=== PATIENT | female | born 1980 | race American Indian/Alaskan Native ===

== ENCOUNTER 2016-07-05 00:28 | Inpatient (IN) | payer MEDICAID, OTHER ==
[2016-07-05 01:16] LABS: Basophils % (Auto) 1.1 % (0.0-1.8); Eosinophils % (Auto) 2.5 % (0.0-4.3); Mean Corpuscular HGB Conc 28 % (30-34); Platelet Count 367 K/mm3 (140-440); Red Blood Count 3.94 M/mm3 (3.65-5.03); Red Cell Distribution Width 19.6 % (13.2-15.2); White Blood Count 5.9 K/mm3 (4.5-11.0)
[2016-07-05 01:31] LABS: Anion Gap 19 mmol/L; BUN/Creatinine Ratio 11.11; Blood Urea Nitrogen 10 mg/dL (7-17); Carbon Dioxide 21 mmol/L (22-30); Chloride 104.3 mmol/L (98-107); Glucose 94 mg/dL (65-100); Potassium 4.2 mmol/L (3.6-5.0); Sodium 140 mmol/L (137-145)
[2016-07-05 01:45] LABS: Hematocrit 23.6 % (30.3-42.9); Hemoglobin 6.6 gm/dl (10.1-14.3); Mean Corpuscular Hemoglobin 17 pg (28-32); Mean Corpuscular Volume 60 fl (79-97)
[2016-07-05 03:25] LABS: Urine Drugs of Abuse Note Disclamer
[2016-07-05 03:48] LABS: Bilirubin,Urine NEG (Negative); Blood,Urine NEG (Negative); Ketones,Urine NEG (Negative); Leukocyte Esterase,Urine SM (Negative); Mucus,Urine FEW /HPF; Nitrite,Urine NEG (Negative); Protein,Urine <15 mg/dL mg/dL (Negative)
[2016-07-05] MEDS ORDERED: NACL 0.9% 500 ML 500 ML IV ONE (04:18)
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
[2016-07-05] MEDS ORDERED: DULCOLAX PR PRN (05:40)
[2016-07-05] MEDS ORDERED: MILK OF MAGNESIA PO PRN (05:40)
[2016-07-05] MEDS ORDERED: ZOFRAN IV PRN (05:40)
--- NOTE | 2016-07-05 05:43 | History and Physical Report ---
History of Present Illness Date of examination: 07/05/16 History of present illness: 36-year-old woman with a history of schizophrenia, bipolar, iron deficiency anemia, hypertension comes emergency room with complaining of feeling fatigued, weak. She also admits to suicidal ideation. He has not taken her psych medications for one 4 months, no iron pills for 1 year. She has multiple stresses in her life, has been on drugs because she has been depressed, has not slept since 5 days and keep. Voices to kill herself. She complains of lower abdominal pain, dull, intermittent in nature, unable to [place] O, intensity, 10, no radiation and she can't identify exacerbating or relieving factors. She has had a menstrual cycle, sometimes twice in 1 month, 10 days each Patient denies chest pain, palpitation, shortness of breath, cough, hematochezia, dysuria, frequency, focal weakness, dysarthria, fever chills, polydipsia polyuria, hot or cold intolerance, easy bruisability, or rash or bleeding from mucosal membrane, rhinorrhea, epistaxis, earache, tinnitus, blurry vision, eye discharge, anxiety, depression. Other review of systems negative PAST SURGICAL HISTORY: Tubal ligation, hernia repair, neck surgery SOCIAL HISTORY: Smoke a pack a day, admits to alcohol, marijuana, cocaine FAMILY HISTORY: Unknown Medications and Allergies Allergies Allergy/AdvReac Type Severity Reaction Status Date / Time No Known Allergies Allergy Verified 07/14/14 15:14 Home Medications Medication Instructions Recorded Confirmed Last Taken Type ALPRAZolam [Xanax TAB] 1 tab PO HS 07/05/16 07/05/16 Unknown History Amitriptyline 50 mg PO BID 07/05/16 07/05/16 Unknown History Sertraline [Zoloft] 50 mg PO QDAY 07/05/16 07/05/16 Unknown History Exam - Physical Exam Narrative exam: Gen. appearance: Patient lying in bed, no apparent distress HEENT: Normocephalic, atraumatic, pupils equally round and reactive to light, extraocular movement intact, and no sclericterus,. No JVD or thyromegaly or nodule,neck supple, no carotid bruit ,mucous membranes moist, no exudate or erythema Heart: S1, S2, regular rate and rhythm Lungs: Clear to auscultation bilaterally, breathing comfortable Abdomen: Positive bowel sounds, nontender, nondistended, no organomegaly Extremity: No edema, cyanosis, clubbing Skin: No rash, nodules, warm, dry Neuro: Oriented 3, cranial nerves II-12 intact, speech is fluent, motor and sensory intact - Constitutional Vitals: Temp Pulse Resp BP Pulse Ox 99.8 F H 84 14 145/92 99 07/05/16 00:37 07/05/16 00:37 07/05/16 03:32 07/05/16 00:37 07/05/16 03:32 Results - Labs CBC & Chem 7: 07/06/16 05:14 07/06/16 05:14 Labs: Abnormal lab results 07/05/16 07/05/16 07/05/16 Range/Units 01:02 01:02 01:02 Hgb 6.6 L (10.1-14.3) gm/dl Hct 23.6 L (30.3-42.9) % MCV 60 L (79-97) fl MCH 17 L (28-32) pg MCHC 28 L (30-34) % RDW 19.6 H (13.2-15.2) % [place] % (Auto) 8.9 H (0.0-7.3) % Carbon Dioxide 21 L (22-30) mmol/L Iron 13 L (37-170) ug/dL Transferrin 397 H (192-382) mg/dl - Imaging and Cardiology EKG: image reviewed Assessment and Plan Suicidal ideation Abdominal pain Symptomatic anemia Bipolar Schizophrenia Hypertension Admit to medicine Place with a sitter, consult psych Transfuse blood, check CAT scan of the abdomen and pelvis Continue appropriate outpatient medication, start DVT prophylaxis
--- NOTE | 2016-07-05 07:14 | Admit Criteria Form ---
Admission Criteria Documentation: HEMATOLOGY GRG Clinical Indications for Admission to Inpatient Care (Place 'X' for any and all applicable criteria): Hospital admission is needed for appropriate care of the patient because of ANY ONE of the following: [X ]I. Severe anemia indicated by ANY ONE of the following (1)(2) [ ]a) Altered mental status [ ]b) Syncope [X ]c) Other findings suggesting inadequate perfusion [ ]d) Chest pain [ X]e) Exertional dyspnea [ ]f) Treatment with transfusion or volume replacement is ineffective at resolving ANY ONE of the following [A]: [ ]i) Tachycardia for age [ ]ii) Orthostatic vital sign changes as indicated by ANY ONE of the following (3) [ ]1) Fall in SBP of 20 mm Hg or more 1 to 3 minutes after patient sits or stands from recumbent position [ ]2) Fall in DBP of 10 mm Hg or more 1 to 3 minutes after patient sits or stands from recumbent position [ ]II. High-risk febrile neutropenia [B] as indicated by ANY ONE of the following(4)(5) [ ]a) Hemodynamic instability [ ]b) Hypoxemia [ ]c) Tachypnea [ ]d) Altered mental status [ ]e) New onset abdominal pain [ ]f) New onset vomiting or diarrhea [ ]g) Pneumonia [ ]h) Profound neutropenia [C] anticipated to extend for more than 7 days [ ]i) Oral or gastrointestinal mucositis that interferes with swallowing or causes severe diarrhea [ ]j) Evidence of significant focal infection (eg, cellulitis, central line or catheter infection, perirectal abscess) [ ]k) Leukemia or lymphoma induction therapy [ ]l) Bone marrow transplant patient [ ]m) Renal insufficiency (eg, GFR of less than 30 mL/min/1.73m2 (0.5 mL/sec/1.73m2) [ ]n) Severe liver dysfunction (transaminase levels greater than 5 times normal) [ ]o) Platelet count less than 50,000/mm3 (50 x109/L)(6) [ ]p) Multinational Association for Supportive Care in Cancer (MASCC) Risk Index score of < 21 [D] [ ]III. High-risk low platelet count as indicated by ANY ONE of the following(8) (9) [ ]a) Severe or life-threatening bleeding (eg, intracranial, major gastrointestinal, or extensive mucosal bleeding), with any reduced platelet count [ ]b) Platelet count less than 20,000/mm3 (20 x109/L) with any active bleeding [ ]c) Platelet count less than 10,000/mm3 (10 x109/L) with minor purpura or petechiae [ ]d) Platelet count less than 5000/mm3 (5 x109/L) [ ]e) Low platelet count with hemolytic anemia [ ]IV.Active hemolysis with high-risk findings, including ANY ONE of the following(2)(10)(11) [ ]a) Hematocrit less than 25% (0.25) [ ]b) Rapidly progressing anemia [ ]c) Thrombocytopenia(12)(13) [ ]d) Evidence of thrombosis or new renal insufficiency [ ]V. Bleeding disorder with high-risk features (eg, hemophilia, coagulopathy) as indicated by ANY ONE of the following (2)(14)(15) [ ]a) Central nervous system bleeding [ ]b) Retroperitoneal bleeding [ ]c) Retropharyngeal bleeding [ ]d) Gastrointestinal bleeding (22) [ ]e) Purpura [ ]f) Disseminated intravascular coagulation(23) [ ]g) Major trauma [ ]h) Deep laceration [ ]i) Head trauma [ ]j) Any trauma with internal hematoma (eg, retroperitoneal, ocular) [ ]k) Failed outpatient management [ ]. Severe over-anticoagulation or high-risk situation as indicated by ANY ONE of the following(24)(25) [ ]a) Active bleeding [ ]b) International normalized ratio 5 or greater and rapid reversal needed [ ]c) International normalized ratio 9 or greater [ ]VII. Congenital immunodeficiency states with severe morbidity as indicated by ANY ONE of the following(26)(27) [ ]a) Severe infection [ ]b) Bone marrow transplant needed (Also use Medical Oncology GRG) [ ]VIII. Hyperviscosity syndrome with high-risk indicators indicated by ANY ONE of the following (2)(28)(29)(30)(31) [ ]a) Polycythemia vera with hematocrit greater than 60% (0.60) [ ]b) Elevated platelet count associated with thrombosis, bleeding, or life-threatening organ dysfunction [ ]c) Severe signs or symptoms from elevated red cell, white cell, or protein levels, including ANY ONE of the following: [ ]i) Mental status change [ ]ii) Dyspnea [ ]iii) Chest x-ray infiltrate [ ]iv) Visual changes [ ]v) Retinal abnormalities [ ]vi) Neuromuscular symptoms [ ]vii) Suspected ischemia or thrombosis [ ]viii) Bleeding [ ]IX. Methemoglobinemia greater than 15% (0.15) or severe symptoms persist after emergency treatment (32)(33) [ ]X. Spleen trauma with blood loss or other need for acute (medical) treatment (34) [ ]XI. Hematology condition and ALL of the following: [ ]a) Symptom or finding for which emergency and observation care have failed or are not considered appropriate (Also use General Criteria: Observation Care as appropriate) [ ]b) Presence of ANY ONE of the following: [ ]i) A General Admission Criteria [ ]ii) A Pediatric General Admission Criteria The original [facility] [employer] content created by [facility] has been revised. The portions of the content which have been revised are identified through the use of italic text or in bold, and [facility] has neither reviewed nor approved the modified material. All other unmodified content is copyright [facility]. Please see references footnoted in the original [facility] edition 2016 Admission Criteria Met: Yes
--- NOTE | 2016-07-05 07:41 | Cat Scan Report ---
FINAL REPORT PROCEDURE: CT ABDOMEN PELVIS WO CON TECHNIQUE: Computerized axial tomography of the abdomen and pelvis was performed without intravenous contrast. This study is performed without intravascular contrast material and its sensitivity for abdominal and pelvic pathology, including neoplasms, inflammation, abscess, free fluid, thrombosis, arterial dissection and infarction, is reduced compared with a contrast enhanced study. HISTORY: abd pain COMPARISON: No prior studies are available for comparison. FINDINGS: Visualized lower thorax: No significant abnormality. Liver: Normal size and attenuation. Spleen: Normal size and attenuation. Gallbladder and biliary system: There are gallstones. The gallbladder is contracted.. Pancreas: Normal. Adrenals: Normal. Kidneys: There are no kidney stones. There is no hydronephrosis.. GI tract: There is no bowel obstruction, colitis or enteritis. The appendix is normal. Lymph nodes and mesentery: Normal. Vasculature: Normal. Bladder: Normal. Reproductive organs: Uterus is enlarged. The ovaries are unremarkable.. Peritoneum: There is no ascites, free air, abscess or adenopathy.. Musculoskeletal structures: No significant abnormality. Other: There are numerous phleboliths in the ovarian veins and in the pelvis.. IMPRESSION: There are gallstones. The gallbladder is contracted. The bile ducts are normal in caliber.. There are no kidney stones. There is no hydronephrosis.. There is no bowel obstruction, colitis or enteritis. The appendix is normal. Uterus is enlarged. The ovaries are unremarkable.. There is no ascites, free air, abscess or adenopathy.. .
[2016-07-05] MEDS ORDERED: NACL 0.9% 500 ML 500 ML ONE (08:51)
[2016-07-05] MEDS: ELAVIL PO SCH ×2 (11:00→22:04)
[2016-07-05] MEDS: ZOLOFT PO SCH (11:00)
[2016-07-05] MEDS ORDERED: BENADRYL ONE (12:55)
--- NOTE | 2016-07-05 13:12 | Event Note ---
Date: 07/05/16 Patient is alert and oriented Feels weak and tired Can't sleep Hearing voices and feels unsafe H and P reviewed Suicidal ideation: Awaiting mental health evaluation Symptomatic anemia: 2 units of PRBC has been ordered Bipolar Schizophrenia Medically appears to be fairly stable
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
[2016-07-05] MEDS: XANAX PO SCH (22:04)
[2016-07-05] MEDS: RisperDAL PO SCH (22:04)
[2016-07-06 06:08] LABS: Basophils % (Auto) 0.7 % (0.0-1.8); Eosinophils % (Auto) 4.1 % (0.0-4.3); Hematocrit 24.8 % (30.3-42.9); Hemoglobin 7.3 gm/dl (10.1-14.3); Mean Corpuscular HGB Conc 30 % (30-34); Platelet Count 262 K/mm3 (140-440); Red Blood Count 3.92 M/mm3 (3.65-5.03); White Blood Count 6.1 K/mm3 (4.5-11.0)
[2016-07-06 06:11] LABS: Mean Corpuscular Hemoglobin 19 pg (28-32); Mean Corpuscular Volume 63 fl (79-97); Red Cell Distribution Width 22.4 % (13.2-15.2)
[2016-07-06 06:30] LABS: Anion Gap 15 mmol/L; BUN/Creatinine Ratio 13.75; Blood Urea Nitrogen 11 mg/dL (7-17); Calcium 8.3 mg/dL (8.4-10.2); Carbon Dioxide 23 mmol/L (22-30); Chloride 105.8 mmol/L (98-107); Glucose 87 mg/dL (65-100); Potassium 4.2 mmol/L (3.6-5.0); Sodium 140 mmol/L (137-145)
--- NOTE | 2016-07-06 12:42 | Progress Note ---
Assessment and Plan Assessment and plan: Suicidal ideation. Continue 1013. Psychiatry following. Abdominal pain. CT scan essentially negative with the exception of gallstones. Cholelithiasis. Check HIDA scan. Symptomatic anemia. Follow-up iron studies. Check Hemoccult stool. Patient is status post 2 units packed red blood cells and hemoglobin still only 7.3. Bipolar/schizophrenia. Psychiatric evaluation. Hypertension. Continue antihypertensives medications. History Interval history: 36-year-old female who is is requesting help for SI, depression, and AH telling her to hurt herself. Patient also complains of fatigue and weakness. Hospitalist Physical - Constitutional Vitals: Temp Pulse Resp BP Pulse Ox 98.0 F 77 18 113/78 100 07/06/16 07:28 07/06/16 07:28 07/06/16 07:28 07/06/16 07:28 07/06/16 07:28 General appearance: Present: no acute distress, well-nourished - EENT Eyes: Present: PERRL, EOM intact ENT: hearing intact, clear oral mucosa, dentition normal - Neck Neck: Present: supple, normal ROM - Respiratory Respiratory effort: normal Respiratory: bilateral: CTA - Cardiovascular Rhythm: regular Heart Sounds: Present: S1 & S2. Absent: gallop, rub - Extremities Extremities: no ischemia, No edema, Full ROM - Abdominal General gastrointestinal: soft, non-tender, non-distended, normal bowel sounds - Integumentary Integumentary: Present: clear, warm, dry - Neurologic Neurologic: CNII-XII intact, moves all extremities Results - Labs CBC & Chem 7: 07/06/16 05:14 07/06/16 05:14 Labs: Laboratory Last Values WBC 6.1 K/mm3 (4.5-11.0) 07/06/16 05:14 RBC 3.92 M/mm3 (3.65-5.03) 07/06/16 05:14 Hgb 7.3 gm/dl (10.1-14.3) L 07/06/16 05:14 Hct 24.8 % (30.3-42.9) L 07/06/16 05:14 MCV 63 fl (79-97) L D 07/06/16 05:14 MCH 19 pg (28-32) L 07/06/16 05:14 MCHC 30 % (30-34) 07/06/16 05:14 RDW 22.4 % (13.2-15.2) H 07/06/16 05:14 Plt Count 262 K/mm3 (140-440) 07/06/16 05:14 Lymph % (Auto) 29.5 % (13.4-35.0) 07/06/16 05:14 [place] % (Auto) 8.9 % (0.0-7.3) H 07/06/16 05:14 Eos % (Auto) 4.1 % (0.0-4.3) 07/06/16 05:14 Baso % (Auto) 0.7 % (0.0-1.8) 07/06/16 05:14 Lymph # 1.8 K/mm3 (1.2-5.4) 07/06/16 05:14 [place] # 0.5 K/mm3 (0.0-0.8) 07/06/16 05:14 Eos # 0.2 K/mm3 (0.0-0.4) 07/06/16 05:14 Baso # 0.0 K/mm3 (0.0-0.1) 07/06/16 05:14 Seg Neutrophils % 56.8 % (40.0-70.0) 07/06/16 05:14 Seg Neutrophils # 3.5 K/mm3 (1.8-7.7) 07/06/16 05:14 Sodium 140 mmol/L (137-145) 07/06/16 05:14 Potassium 4.2 mmol/L (3.6-5.0) 07/06/16 05:14 Chloride 105.8 mmol/L (98-107) 07/06/16 05:14 Carbon Dioxide 23 mmol/L (22-30) 07/06/16 05:14 Anion Gap 15 mmol/L 07/06/16 05:14 BUN 11 mg/dL (7-17) 07/06/16 05:14 Creatinine 0.8 mg/dL (0.7-1.2) 07/06/16 05:14 Estimated GFR > 60 ml/min 07/06/16 05:14 BUN/Creatinine Ratio 13.75 % 07/06/16 05:14 Glucose 87 mg/dL (65-100) 07/06/16 05:14 Calcium 8.3 mg/dL (8.4-10.2) L 07/06/16 05:14 Iron 13 ug/dL (37-170) L 07/05/16 01:02 TIBC 449 mcg/dL (250-450) 07/05/16 01:02 % Saturation 2.90 % 07/05/16 01:02 Transferrin 397 mg/dl (192-382) H 07/05/16 01:02 Total Creatine Kinase 69 units/L (30-135) 07/05/16 04:20 Urine Color Yellow (Yellow) 07/05/16 03:07 Urine Turbidity Clear (Clear) 07/05/16 03:07 Urine pH 6.0 (5.0-7.0) 07/05/16 03:07 Ur Specific [place] 1.017 (1.003-1.030) 07/05/16 03:07 Urine Protein <15 mg/dl mg/dL (Negative) 07/05/16 03:07 Urine Glucose (UA) Neg mg/dL (Negative) 07/05/16 03:07 Urine Ketones Neg mg/dL (Negative) 07/05/16 03:07 Urine Blood Neg (Negative) 07/05/16 03:07 Urine Nitrite Neg (Negative) 07/05/16 03:07 Urine Bilirubin Neg (Negative) 07/05/16 03:07 Urine Urobilinogen 2.0 mg/dL (<2.0) 07/05/16 03:07 Ur Leukocyte Esterase Sm (Negative) 07/05/16 03:07 Urine WBC (Auto) 1.0 /HPF (0.0-6.0) 07/05/16 03:07 Urine RBC (Auto) 2.0 /HPF (0.0-6.0) 07/05/16 03:07 U Epithel Cells (Auto) 2.0 /HPF (0-13.0) 07/05/16 03:07 Urine Mucus Few /HPF 07/05/16 03:07 Urine HCG, Qual Negative (Negative) 07/05/16 03:07 Urine Opiates Screen Presumptive negative 07/05/16 03:07 Urine Methadone Screen Presumptive negative 07/05/16 03:07 Ur Barbiturates Screen Presumptive negative 07/05/16 03:07 Ur Phencyclidine Scrn Presumptive negative 07/05/16 03:07 Ur Amphetamines Screen Presumptive negative 07/05/16 03:07 U Benzodiazepines Scrn Presumptive negative 07/05/16 03:07 Urine Cocaine Screen Presumptive positive 07/05/16 03:07 U Marijuana (THC) Screen Presumptive negative 07/05/16 03:07 Drugs of Abuse Note Disclamer 07/05/16 03:07 Plasma/Serum Alcohol < 0.01 gm% (0-0.07) 07/05/16 01:02 Blood Type O POSITIVE 07/05/16 04:37 Antibody Screen TNR 07/05/16 04:37 VALENTÍN Antibody Screen Negative 07/05/16 04:37 Crossmatch See Detail 07/05/16 04:37
[2016-07-06 13:39] LABS: Reticulocyte % 1.89 % (0.78-2.58)
[2016-07-06] MEDS: ELAVIL PO SCH ×2 (13:57→22:07)
[2016-07-06] MEDS: ZOLOFT PO SCH (13:57)
[2016-07-06 14:20] LABS: Iron 22 ug/dL (37-170); Lactate Dehydrogenase 167 units/L (91-180); Total Iron Binding Capacity 410 mcg/dL (250-450)
[2016-07-06] MEDS: TYLENOL PO PRN (15:14)
[2016-07-06] MEDS: XANAX PO SCH (22:08)
[2016-07-06] MEDS: RisperDAL PO SCH (22:08)
[2016-07-07 08:15] LABS: Basophils % (Auto) 0.9 % (0.0-1.8); Eosinophils % (Auto) 4.9 % (0.0-4.3); Hematocrit 23.7 % (30.3-42.9); Mean Corpuscular HGB Conc 30 % (30-34); Platelet Count 211 K/mm3 (140-440); White Blood Count 6.3 K/mm3 (4.5-11.0)
[2016-07-07 08:23] LABS: Mean Corpuscular Hemoglobin 18 pg (28-32); Mean Corpuscular Volume 62 fl (79-97); Red Cell Distribution Width 23.1 % (13.2-15.2)
[2016-07-07] MEDS ORDERED: WATER FOR INJ (PF) 10 ML ONE (08:57)
[2016-07-07] MEDS ORDERED: KINEVAC IV ONE ×2 (08:58→09:09)
[2016-07-07 09:00] LABS: Anion Gap 14 mmol/L; BUN/Creatinine Ratio 12.85; Blood Urea Nitrogen 9 mg/dL (7-17); Calcium 8.6 mg/dL (8.4-10.2); Carbon Dioxide 26 mmol/L (22-30); Chloride 102.5 mmol/L (98-107); Glucose 91 mg/dL (65-100); Potassium 4.1 mmol/L (3.6-5.0); Sodium 138 mmol/L (137-145)
[2016-07-07] MEDS ORDERED: WATER FOR INJ (PF) IV SCH (10:00)
--- NOTE | 2016-07-07 10:07 | Progress Note ---
Assessment and Plan Assessment and plan: Suicidal ideation. Continue 1013. Psychiatry following. Abdominal pain. CT scan essentially negative with the exception of gallstones. Cholelithiasis. Check HIDA scan. Symptomatic anemia. Follow-up iron studies. Check Hemoccult stool. Patient is status post 2 units packed red blood cells and hemoglobin still only 7.0. We will transfuse 2 more units of Bipolar/schizophrenia. Psychiatric evaluation. Hypertension. Continue antihypertensives medications. History Interval history: 36-year-old female who is is requesting help for SI, depression, and AH telling her to hurt herself. Patient also complains of fatigue and weakness. Hospitalist Physical - Constitutional Vitals: Temp Pulse Resp BP Pulse Ox 98.0 F 72 20 143/95 100 07/07/16 07:43 07/07/16 07:43 07/07/16 07:43 07/07/16 07:43 07/07/16 00:00 General appearance: Present: no acute distress, well-nourished - EENT Eyes: Present: PERRL, EOM intact ENT: hearing intact, clear oral mucosa, dentition normal - Neck Neck: Present: supple, normal ROM - Respiratory Respiratory effort: normal Respiratory: bilateral: CTA - Cardiovascular Rhythm: regular Heart Sounds: Present: S1 & S2. Absent: gallop, rub - Extremities Extremities: no ischemia, No edema, Full ROM - Abdominal General gastrointestinal: soft, non-tender, non-distended, normal bowel sounds - Integumentary Integumentary: Present: clear, warm, dry - Neurologic Neurologic: CNII-XII intact, moves all extremities Results - Labs CBC & Chem 7: 07/07/16 07:49 07/07/16 07:49 Labs: Laboratory Last Values WBC 6.3 K/mm3 (4.5-11.0) 07/07/16 07:49 RBC 3.80 M/mm3 (3.65-5.03) 07/07/16 07:49 Hgb 7.0 gm/dl (10.1-14.3) L 07/07/16 07:49 Hct 23.7 % (30.3-42.9) L 07/07/16 07:49 MCV 62 fl (79-97) L 07/07/16 07:49 MCH 18 pg (28-32) L 07/07/16 07:49 MCHC 30 % (30-34) 07/07/16 07:49 RDW 23.1 % (13.2-15.2) H 07/07/16 07:49 Plt Count 211 K/mm3 (140-440) 07/07/16 07:49 Lymph % (Auto) 32.9 % (13.4-35.0) 07/07/16 07:49 [place] % (Auto) 8.6 % (0.0-7.3) H 07/07/16 07:49 Eos % (Auto) 4.9 % (0.0-4.3) H 07/07/16 07:49 Baso % (Auto) 0.9 % (0.0-1.8) 07/07/16 07:49 Lymph # 2.1 K/mm3 (1.2-5.4) 07/07/16 07:49 [place] # 0.5 K/mm3 (0.0-0.8) 07/07/16 07:49 Eos # 0.3 K/mm3 (0.0-0.4) 07/07/16 07:49 Baso # 0.1 K/mm3 (0.0-0.1) 07/07/16 07:49 Seg Neutrophils % 52.7 % (40.0-70.0) 07/07/16 07:49 Seg Neutrophils # 3.3 K/mm3 (1.8-7.7) 07/07/16 07:49 Percent Retic 1.89 % (0.78-2.58) 07/06/16 13:22 Sodium 138 mmol/L (137-145) 07/07/16 07:49 Potassium 4.1 mmol/L (3.6-5.0) 07/07/16 07:49 Chloride 102.5 mmol/L (98-107) 07/07/16 07:49 Carbon Dioxide 26 mmol/L (22-30) 07/07/16 07:49 Anion Gap 14 mmol/L 07/07/16 07:49 BUN 9 mg/dL (7-17) 07/07/16 07:49 Creatinine 0.7 mg/dL (0.7-1.2) 07/07/16 07:49 Estimated GFR > 60 ml/min 07/07/16 07:49 BUN/Creatinine Ratio 12.85 % 07/07/16 07:49 Glucose 91 mg/dL (65-100) 07/07/16 07:49 Calcium 8.6 mg/dL (8.4-10.2) 07/07/16 07:49 Iron 22 ug/dL (37-170) L 07/06/16 13:22 TIBC 410 mcg/dL (250-450) 07/06/16 13:22 % Saturation 2.90 % 07/05/16 01:02 Transferrin 397 mg/dl (192-382) H 07/05/16 01:02 Ferritin 3.9 ng/mL (13.0-400.0) L 07/06/16 13:22 Lactate Dehydrogenase 167 units/L (91-180) 07/06/16 13:22 Total Creatine Kinase 69 units/L (30-135) 07/05/16 04:20 Vitamin B12 228.8 pg/mL (211-911) 07/06/16 13:22 Folate 5.42 ng/mL (7.3-26.0) L 07/06/16 13:22 Urine Color Yellow (Yellow) 07/05/16 03:07 Urine Turbidity Clear (Clear) 07/05/16 03:07 Urine pH 6.0 (5.0-7.0) 07/05/16 03:07 Ur Specific [place] 1.017 (1.003-1.030) 07/05/16 03:07 Urine Protein <15 mg/dl mg/dL (Negative) 07/05/16 03:07 Urine Glucose (UA) Neg mg/dL (Negative) 07/05/16 03:07 Urine Ketones Neg mg/dL (Negative) 07/05/16 03:07 Urine Blood Neg (Negative) 07/05/16 03:07 Urine Nitrite Neg (Negative) 07/05/16 03:07 Urine Bilirubin Neg (Negative) 07/05/16 03:07 Urine Urobilinogen 2.0 mg/dL (<2.0) 07/05/16 03:07 Ur Leukocyte Esterase Sm (Negative) 07/05/16 03:07 Urine WBC (Auto) 1.0 /HPF (0.0-6.0) 07/05/16 03:07 Urine RBC (Auto) 2.0 /HPF (0.0-6.0) 07/05/16 03:07 U Epithel Cells (Auto) 2.0 /HPF (0-13.0) 07/05/16 03:07 Urine Mucus Few /HPF 07/05/16 03:07 Urine HCG, Qual Negative (Negative) 07/05/16 03:07 Urine Opiates Screen Presumptive negative 07/05/16 03:07 Urine Methadone Screen Presumptive negative 07/05/16 03:07 Ur Barbiturates Screen Presumptive negative 07/05/16 03:07 Ur Phencyclidine Scrn Presumptive negative 07/05/16 03:07 Ur Amphetamines Screen Presumptive negative 07/05/16 03:07 U Benzodiazepines Scrn Presumptive negative 07/05/16 03:07 Urine Cocaine Screen Presumptive positive 07/05/16 03:07 U Marijuana (THC) Screen Presumptive negative 07/05/16 03:07 Drugs of Abuse Note Disclamer 07/05/16 03:07 Plasma/Serum Alcohol < 0.01 gm% (0-0.07) 07/05/16 01:02 Blood Type O POSITIVE 07/05/16 04:37 Antibody Screen TNR 07/05/16 04:37 VALENTÍN Antibody Screen Negative 07/05/16 04:37 Crossmatch See Detail 07/05/16 04:37
[2016-07-07] MEDS ORDERED: NACL 0.9% 500 ML 500 ML IV ONE (10:30)
[2016-07-07] MEDS: TYLENOL PO PRN (10:48)
[2016-07-07] MEDS: ELAVIL PO SCH ×2 (10:49→21:43)
[2016-07-07] MEDS: ZOLOFT PO SCH (10:49)
--- NOTE | 2016-07-07 10:58 | Nuclear Medicine Report ---
NUCLEAR MEDICINE HEPATOBILIARY SCAN: 07/07/16 12:43:00 CLINICAL: Abdominal pain and cholelithiasis. TECHNIQUE: 5.0mCi technetium 99m Choletec was injected intravenously. Serial images were obtained up to one hour. At that time, 2.18 mcg of Kinevac was injected intravenously by slow infusion. A gallbladder ejection fraction was calculated. FINDINGS: Normal activity in the liver, bile ducts and small bowel. Normal gallbladder activity appears within ten minutes. New nausea was experienced with the Kinevac injection. Abnormal gallbladder ejection fraction of 14%. IMPRESSION: No acute cholecystitis. However, abnormal gallbladder ejection fraction consistent with gallbladder dyskinesis.
[2016-07-07] MEDS: PERCOCET 5/325 PO PRN (21:02)
[2016-07-07] MEDS: XANAX PO SCH (21:43)
[2016-07-07] MEDS: RisperDAL PO SCH (21:43)
[2016-07-08] MEDS: PERCOCET 5/325 PO PRN ×3 (03:12→18:18)
[2016-07-08] MEDS: ELAVIL PO SCH ×2 (09:24→21:39)
[2016-07-08] MEDS: ZOLOFT PO SCH (09:25)
--- NOTE | 2016-07-08 11:17 | Progress Note ---
Assessment and Plan Assessment and plan: Suicidal ideation. Continue 1013. Psychiatry following. Abdominal pain. CT scan essentially negative with the exception of gallstones. Cholelithiasis. HIDA scan suggestive of gallbladder dyskinesia. Symptomatic anemia. Follow-up iron studies. Check Hemoccult stool. Type and cross and transfuse 2 units PRBCs. Bipolar/schizophrenia. Psychiatric evaluation. Hypertension. Continue antihypertensives medications. History Interval history: 36-year-old female who is is requesting help for SI, depression, and AH telling her to hurt herself. Hospitalist Physical - Constitutional Vitals: Temp Pulse Resp BP Pulse Ox 98.1 F 84 18 138/82 97 07/08/16 08:00 07/08/16 08:00 07/08/16 08:00 07/08/16 08:00 07/08/16 08:00 General appearance: Present: no acute distress, well-nourished - EENT Eyes: Present: PERRL, EOM intact ENT: hearing intact, clear oral mucosa, dentition normal - Neck Neck: Present: supple, normal ROM - Respiratory Respiratory effort: normal Respiratory: bilateral: CTA - Cardiovascular Rhythm: regular Heart Sounds: Present: S1 & S2. Absent: gallop, rub - Extremities Extremities: no ischemia, No edema, Full ROM - Abdominal General gastrointestinal: soft, non-tender, non-distended, normal bowel sounds - Integumentary Integumentary: Present: clear, warm, dry - Neurologic Neurologic: CNII-XII intact, moves all extremities Results - Labs CBC & Chem 7: 07/07/16 07:49 07/07/16 07:49 Labs: Laboratory Last Values WBC 6.3 K/mm3 (4.5-11.0) 07/07/16 07:49 RBC 3.80 M/mm3 (3.65-5.03) 07/07/16 07:49 Hgb 7.0 gm/dl (10.1-14.3) L 07/07/16 07:49 Hct 23.7 % (30.3-42.9) L 07/07/16 07:49 MCV 62 fl (79-97) L 07/07/16 07:49 MCH 18 pg (28-32) L 07/07/16 07:49 MCHC 30 % (30-34) 07/07/16 07:49 RDW 23.1 % (13.2-15.2) H 07/07/16 07:49 Plt Count 211 K/mm3 (140-440) 07/07/16 07:49 Lymph % (Auto) 32.9 % (13.4-35.0) 07/07/16 07:49 [place] % (Auto) 8.6 % (0.0-7.3) H 07/07/16 07:49 Eos % (Auto) 4.9 % (0.0-4.3) H 07/07/16 07:49 Baso % (Auto) 0.9 % (0.0-1.8) 07/07/16 07:49 Lymph # 2.1 K/mm3 (1.2-5.4) 07/07/16 07:49 [place] # 0.5 K/mm3 (0.0-0.8) 07/07/16 07:49 Eos # 0.3 K/mm3 (0.0-0.4) 07/07/16 07:49 Baso # 0.1 K/mm3 (0.0-0.1) 07/07/16 07:49 Seg Neutrophils % 52.7 % (40.0-70.0) 07/07/16 07:49 Seg Neutrophils # 3.3 K/mm3 (1.8-7.7) 07/07/16 07:49 Percent Retic 1.89 % (0.78-2.58) 07/06/16 13:22 Sodium 138 mmol/L (137-145) 07/07/16 07:49 Potassium 4.1 mmol/L (3.6-5.0) 07/07/16 07:49 Chloride 102.5 mmol/L (98-107) 07/07/16 07:49 Carbon Dioxide 26 mmol/L (22-30) 07/07/16 07:49 Anion Gap 14 mmol/L 07/07/16 07:49 BUN 9 mg/dL (7-17) 07/07/16 07:49 Creatinine 0.7 mg/dL (0.7-1.2) 07/07/16 07:49 Estimated GFR > 60 ml/min 07/07/16 07:49 BUN/Creatinine Ratio 12.85 % 07/07/16 07:49 Glucose 91 mg/dL (65-100) 07/07/16 07:49 Calcium 8.6 mg/dL (8.4-10.2) 07/07/16 07:49 Iron 22 ug/dL (37-170) L 07/06/16 13:22 TIBC 410 mcg/dL (250-450) 07/06/16 13:22 % Saturation 2.90 % 07/05/16 01:02 Transferrin 397 mg/dl (192-382) H 07/05/16 01:02 Ferritin 3.9 ng/mL (13.0-400.0) L 07/06/16 13:22 Lactate Dehydrogenase 167 units/L (91-180) 07/06/16 13:22 Total Creatine Kinase 69 units/L (30-135) 07/05/16 04:20 Vitamin B12 228.8 pg/mL (211-911) 07/06/16 13:22 Folate 5.42 ng/mL (7.3-26.0) L 07/06/16 13:22 Urine Color Yellow (Yellow) 07/05/16 03:07 Urine Turbidity Clear (Clear) 07/05/16 03:07 Urine pH 6.0 (5.0-7.0) 07/05/16 03:07 Ur Specific [place] 1.017 (1.003-1.030) 07/05/16 03:07 Urine Protein <15 mg/dl mg/dL (Negative) 07/05/16 03:07 Urine Glucose (UA) Neg mg/dL (Negative) 07/05/16 03:07 Urine Ketones Neg mg/dL (Negative) 07/05/16 03:07 Urine Blood Neg (Negative) 07/05/16 03:07 Urine Nitrite Neg (Negative) 07/05/16 03:07 Urine Bilirubin Neg (Negative) 07/05/16 03:07 Urine Urobilinogen 2.0 mg/dL (<2.0) 07/05/16 03:07 Ur Leukocyte Esterase Sm (Negative) 07/05/16 03:07 Urine WBC (Auto) 1.0 /HPF (0.0-6.0) 07/05/16 03:07 Urine RBC (Auto) 2.0 /HPF (0.0-6.0) 07/05/16 03:07 U Epithel Cells (Auto) 2.0 /HPF (0-13.0) 07/05/16 03:07 Urine Mucus Few /HPF 07/05/16 03:07 Urine HCG, Qual Negative (Negative) 07/05/16 03:07 Urine Opiates Screen Presumptive negative 07/05/16 03:07 Urine Methadone Screen Presumptive negative 07/05/16 03:07 Ur Barbiturates Screen Presumptive negative 07/05/16 03:07 Ur Phencyclidine Scrn Presumptive negative 07/05/16 03:07 Ur Amphetamines Screen Presumptive negative 07/05/16 03:07 U Benzodiazepines Scrn Presumptive negative 07/05/16 03:07 Urine Cocaine Screen Presumptive positive 07/05/16 03:07 U Marijuana (THC) Screen Presumptive negative 07/05/16 03:07 Drugs of Abuse Note Disclamer 07/05/16 03:07 Plasma/Serum Alcohol < 0.01 gm% (0-0.07) 07/05/16 01:02 Blood Type O POSITIVE 07/05/16 04:37 Antibody Screen TNR 07/05/16 04:37 VALENTÍN Antibody Screen Negative 07/05/16 04:37 Crossmatch See Detail 07/05/16 04:37
[2016-07-08] MEDS ORDERED: NACL 0.9% 500 ML 500 ML IV ONE (14:00)
[2016-07-08] MEDS: XANAX PO SCH (21:39)
[2016-07-08] MEDS: RisperDAL PO SCH (21:40)
[2016-07-09] MEDS: PERCOCET 5/325 PO PRN ×2 (00:27→20:04)
[2016-07-09] MEDS: ELAVIL PO SCH ×2 (09:32→22:05)
[2016-07-09] MEDS: ZOLOFT PO SCH (09:32)
--- NOTE | 2016-07-09 10:44 | Progress Note ---
History Interval history: PROBLEMS 1. Sucidal ideation followed with psychiatry 2.Lower abdominal pain HIDA revealed GB dyskenisia. No abdominal pain--now resolved 3.Iron deficiency anemia Patient transfused 2 units of PRBC and waiting for result Monitor for 24 hrs for any bleeding and anticipate discharge by tomorrow () if bleeding persist consider for GI evaluation 4. Menorrhagia follow up with [facility] as OP Hospitalist Physical - Constitutional Vitals: Temp Pulse Resp BP Pulse Ox 98.0 F 74 18 121/74 99 07/09/16 08:23 07/09/16 08:23 07/09/16 08:23 07/09/16 08:23 07/09/16 08:23 General appearance: Present: no acute distress, well-nourished Results - Labs CBC & Chem 7: 07/07/16 07:49 07/07/16 07:49 Labs: Laboratory Last Values WBC 6.3 K/mm3 (4.5-11.0) 07/07/16 07:49 RBC 3.80 M/mm3 (3.65-5.03) 07/07/16 07:49 Hgb 7.0 gm/dl (10.1-14.3) L 07/07/16 07:49 Hct 23.7 % (30.3-42.9) L 07/07/16 07:49 MCV 62 fl (79-97) L 07/07/16 07:49 MCH 18 pg (28-32) L 07/07/16 07:49 MCHC 30 % (30-34) 07/07/16 07:49 RDW 23.1 % (13.2-15.2) H 07/07/16 07:49 Plt Count 211 K/mm3 (140-440) 07/07/16 07:49 Lymph % (Auto) 32.9 % (13.4-35.0) 07/07/16 07:49 [place] % (Auto) 8.6 % (0.0-7.3) H 07/07/16 07:49 Eos % (Auto) 4.9 % (0.0-4.3) H 07/07/16 07:49 Baso % (Auto) 0.9 % (0.0-1.8) 07/07/16 07:49 Lymph # 2.1 K/mm3 (1.2-5.4) 07/07/16 07:49 [place] # 0.5 K/mm3 (0.0-0.8) 07/07/16 07:49 Eos # 0.3 K/mm3 (0.0-0.4) 07/07/16 07:49 Baso # 0.1 K/mm3 (0.0-0.1) 07/07/16 07:49 Seg Neutrophils % 52.7 % (40.0-70.0) 07/07/16 07:49 Seg Neutrophils # 3.3 K/mm3 (1.8-7.7) 07/07/16 07:49 Percent Retic 1.89 % (0.78-2.58) 07/06/16 13:22 Sodium 138 mmol/L (137-145) 07/07/16 07:49 Potassium 4.1 mmol/L (3.6-5.0) 07/07/16 07:49 Chloride 102.5 mmol/L (98-107) 07/07/16 07:49 Carbon Dioxide 26 mmol/L (22-30) 07/07/16 07:49 Anion Gap 14 mmol/L 07/07/16 07:49 BUN 9 mg/dL (7-17) 07/07/16 07:49 Creatinine 0.7 mg/dL (0.7-1.2) 07/07/16 07:49 Estimated GFR > 60 ml/min 07/07/16 07:49 BUN/Creatinine Ratio 12.85 % 07/07/16 07:49 Glucose 91 mg/dL (65-100) 07/07/16 07:49 Calcium 8.6 mg/dL (8.4-10.2) 07/07/16 07:49 Iron 22 ug/dL (37-170) L 07/06/16 13:22 TIBC 410 mcg/dL (250-450) 07/06/16 13:22 % Saturation 2.90 % 07/05/16 01:02 Transferrin 397 mg/dl (192-382) H 07/05/16 01:02 Ferritin 3.9 ng/mL (13.0-400.0) L 07/06/16 13:22 Lactate Dehydrogenase 167 units/L (91-180) 07/06/16 13:22 Total Creatine Kinase 69 units/L (30-135) 07/05/16 04:20 Vitamin B12 228.8 pg/mL (211-911) 07/06/16 13:22 Folate 5.42 ng/mL (7.3-26.0) L 07/06/16 13:22 Urine Color Yellow (Yellow) 07/05/16 03:07 Urine Turbidity Clear (Clear) 07/05/16 03:07 Urine pH 6.0 (5.0-7.0) 07/05/16 03:07 Ur Specific [place] 1.017 (1.003-1.030) 07/05/16 03:07 Urine Protein <15 mg/dl mg/dL (Negative) 07/05/16 03:07 Urine Glucose (UA) Neg mg/dL (Negative) 07/05/16 03:07 Urine Ketones Neg mg/dL (Negative) 07/05/16 03:07 Urine Blood Neg (Negative) 07/05/16 03:07 Urine Nitrite Neg (Negative) 07/05/16 03:07 Urine Bilirubin Neg (Negative) 07/05/16 03:07 Urine Urobilinogen 2.0 mg/dL (<2.0) 07/05/16 03:07 Ur Leukocyte Esterase Sm (Negative) 07/05/16 03:07 Urine WBC (Auto) 1.0 /HPF (0.0-6.0) 07/05/16 03:07 Urine RBC (Auto) 2.0 /HPF (0.0-6.0) 07/05/16 03:07 U Epithel Cells (Auto) 2.0 /HPF (0-13.0) 07/05/16 03:07 Urine Mucus Few /HPF 07/05/16 03:07 Urine HCG, Qual Negative (Negative) 07/05/16 03:07 Urine Opiates Screen Presumptive negative 07/05/16 03:07 Urine Methadone Screen Presumptive negative 07/05/16 03:07 Ur Barbiturates Screen Presumptive negative 07/05/16 03:07 Ur Phencyclidine Scrn Presumptive negative 07/05/16 03:07 Ur Amphetamines Screen Presumptive negative 07/05/16 03:07 U Benzodiazepines Scrn Presumptive negative 07/05/16 03:07 Urine Cocaine Screen Presumptive positive 07/05/16 03:07 U Marijuana (THC) Screen Presumptive negative 07/05/16 03:07 Drugs of Abuse Note Disclamer 07/05/16 03:07 Plasma/Serum Alcohol < 0.01 gm% (0-0.07) 07/05/16 01:02 Blood Type O POSITIVE 07/08/16 11:57 Antibody Screen TNR 07/08/16 11:57 VALENTÍN Antibody Screen Negative 07/08/16 11:57 Crossmatch See Detail 07/08/16 11:57
[2016-07-09 11:11] LABS: Hematocrit 29.7 % (30.3-42.9); Hemoglobin 9.1 gm/dl (10.1-14.3); Mean Corpuscular HGB Conc 31 % (30-34); Mean Corpuscular Volume 70 fl (79-97); Platelet Count 179 K/mm3 (140-440); Red Blood Count 4.22 M/mm3 (3.65-5.03); White Blood Count 6.9 K/mm3 (4.5-11.0)
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
[2016-07-09 11:17] LABS: Mean Corpuscular Hemoglobin 22 pg (28-32); Red Cell Distribution Width 28.8 % (13.2-15.2)
[2016-07-09] MEDS: XANAX PO SCH (22:04)
[2016-07-09] MEDS: RisperDAL PO SCH (22:04)
[2016-07-09] MEDS: DESYREL PO SCH (22:05)
[2016-07-10] MEDS: PERCOCET 5/325 PO PRN ×2 (08:11→20:51)
--- NOTE | 2016-07-10 09:11 | Discharge Summary ---
Providers - Providers Date of Admission: 07/05/16 05:40 Date of discharge: 07/11/16 Attending physician: LUKE GUAJARDO Primary care physician: PETROLOGY TEACHER Hospitalization Reason for admission: SI Condition: Stable Hospital course: 36-year-old woman with a history of schizophrenia, bipolar, iron deficiency anemia, hypertension who presented to emergency room with complaining of feeling fatigued and weak. She reported suicidal ideation. Patient had not taken her psych medications for one 4 months, no iron pills for 1 year. She reported multiple stresses in her life, has been on drugs because she has been depressed, has not slept since 5 days and keep. Voiced to kill herself. She complained of lower abdominal pain, dull, intermittent in nature, intensity was initially 10 with no radiation and she could not identify exacerbating or relieving factors. She has had a menstrual cycle, sometimes twice in 1 month, 10 days each. Patient was admitted for suicidal ideations and placed on suicide precautions. Patient also had admission for abdominal pain, menorrhagia and symptomatic anemia. Patient underwent workup with imaging revealing all stones. Etiology of the abdominal pain was felt to be secondary to possible cholelithiasis/passage of stone. HIDA scan was obtained for further evaluation and revealed gallbladder dyskinesia. Patient also received blood transfusion for the anemia with stabilization of the H&H. Etiology of the iron deficiency anemia is felt to be secondary to chronic blood loss from menorrhagia. Patient reports that she has had follow-up in the past with [facility] which she will continue upon discharge. Patient will also be given follow-up with GI/surgery for her gallbladder dyskinesia if deemed for further treatment or evaluation in the future. Patient is otherwise medically clear for discharge to psychiatric facility. Dedicated discharge time 32 minutes. Disposition: DC/TX [facility] Time spent for discharge: 32 - Discharge Diagnoses (1) Dyskinesia of gallbladder Status: Acute (2) Menorrhagia Status: Acute Qualifiers: Menorrahagia type: M (3) Bipolar disorder Status: Acute Qualifiers: Active/Remission status: A Current bipolar episode type: C Current episode severity: C Psychotic features: P Most recent bipolar episode type: M (4) Iron deficiency anemia Status: Acute Qualifiers: Iron deficiency anemia type: I (5) Noncompliance with medication regimen Status: Acute (6) Suicidal ideation Status: Acute (7) Symptomatic anemia Status: Acute Core Measure Documentation - Palliative Care Palliative Care/ Comfort Measures: Not Applicable - Core Measures Any of the following diagnoses?: none Exam - Constitutional Vitals: Temp Pulse Resp BP Pulse Ox 98.4 F 83 19 124/67 100 07/10/16 07:00 07/10/16 07:00 07/10/16 07:00 07/10/16 07:00 07/10/16 07:00 General appearance: Present: no acute distress, well-nourished - EENT Eyes: Present: PERRL ENT: hearing intact, clear oral mucosa - Neck Neck: Present: supple, normal ROM - Respiratory Respiratory effort: normal Respiratory: bilateral: CTA - Cardiovascular Heart Sounds: Present: S1 & S2. Absent: rub, click - Extremities Extremities: pulses symmetrical, No edema Peripheral Pulses: within normal limits - Abdominal General gastrointestinal: Present: soft, non-tender, non-distended, normal bowel sounds Female genitourinary: Present: normal - Integumentary Integumentary: Present: clear, warm, dry - Musculoskeletal Musculoskeletal: gait normal, strength equal bilaterally - Psychiatric Psychiatric: appropriate mood/affect, intact judgment & insight - Neurologic Neurologic: CNII-XII intact, moves all extremities Plan Activity: no restrictions Weight Bearing Status: Full Weight Bearing Diet: low fat, low cholesterol Follow up with: BRENTON ISLAS MD [Primary Care Provider] - 7 Days YENY PATIÑO MD [Staff Physician] - 7 Days ARGENTINA ZAMORA MD [Staff Physician] - 7 Days
[2016-07-10] MEDS: ELAVIL PO SCH ×2 (10:13→22:57)
[2016-07-10] MEDS: ZOLOFT PO SCH (10:13)
--- NOTE | 2016-07-10 13:32 | Progress Note ---
Subjective - Reason for Consult Consult date: 07/10/16 Reason for consult: psychiatric follow up - Chief Complaint Chief complaint: "I'm a little better" 36 year old black female seen in the ER for psychiatric evaluation. Today patient is calm and cooperative during our assessment. She stated that the voices are still active in her head and its hard to get to sleep. No HI. She states the voices tell her to harm herself. Not sleeping well despite medication. Mental Status Exam - Vital signs Last Vital Signs Temp 98.4 F 07/10/16 07:00 Pulse 83 07/10/16 07:00 Resp 19 07/10/16 07:00 BP 124/67 07/10/16 07:00 Pulse Ox 100 07/10/16 07:00 - Exam Narrative exam: MSE: Appearance: calm, cooperative Behavior: good eye contact Speech: regular rate and tone Mood: "okay" Affect: flat Thought Process: linear Thought Content: SI related to AH Motor Activity: lying in bed Cognition: a/ox 3 Insight: fair Judgment: fair Assessment and Plan Impression: SI, severe depression with psychotic symptoms PTSD self reported history of schizophrenia and bipolar Recommendation: Transfer to inpatient psychiatric facility once medically cleared. Continue 1013 Start Risperdal 1mg hs for psychotic symptoms and mood Continue SSRI. Benzodiazepines or other controlled medications are not recommended as the addictive potential is high, especially since she is using cocaine and marijuana. Continue Trazodone 50mg hs and give it one more night to see if effective.
[2016-07-10] MEDS: XANAX PO SCH (22:57)
[2016-07-10] MEDS: DESYREL PO SCH (22:57)
[2016-07-10] MEDS: RisperDAL PO SCH (22:57)
--- NOTE | 2016-07-11 08:50 | Progress Note ---
Assessment and Plan Assessment and plan: Suicidal ideation. Continue 1013. Psychiatry following. Abdominal pain. CT scan essentially negative with the exception of gallstones. Cholelithiasis. HIDA scan suggestive of gallbladder dyskinesia. Symptomatic anemia. Follow-up iron studies. Check Hemoccult stool. Type and cross and transfuse 2 units PRBCs. Bipolar/schizophrenia. Psychiatric evaluation. Hypertension. Continue antihypertensives medications. - Patient Problems (1) Dyskinesia of gallbladder Current Visit: Yes Status: Acute (2) Menorrhagia Current Visit: Yes Status: Acute Qualifiers: Menorrahagia type: M (3) Bipolar disorder Current Visit: Yes Status: Acute Qualifiers: Active/Remission status: A Current bipolar episode type: C Current episode severity: C Psychotic features: P Most recent bipolar episode type: M (4) Iron deficiency anemia Current Visit: Yes Status: Acute Qualifiers: Iron deficiency anemia type: I (5) Noncompliance with medication regimen Current Visit: Yes Status: Acute (6) Suicidal ideation Current Visit: Yes Status: Acute (7) Symptomatic anemia Current Visit: Yes Status: Acute History Interval history: PROBLEMS 1. Sucidal ideation followed with psychiatry 2.Lower abdominal pain HIDA revealed GB dyskenisia. No abdominal pain--now resolved 3.Iron deficiency anemia Patient transfused 2 units of PRBC and waiting for result Monitor for 24 hrs for any bleeding and anticipate discharge by tomorrow () if bleeding persist consider for GI evaluation 4. Menorrhagia follow up with [facility] as OP Hospitalist Physical - Constitutional Vitals: Temp Pulse Resp BP Pulse Ox 97.9 F 74 18 122/74 98 07/11/16 00:11 07/11/16 00:11 07/11/16 00:11 07/11/16 00:11 07/11/16 00:11 General appearance: Present: no acute distress, well-nourished - EENT Eyes: Present: PERRL, EOM intact ENT: hearing intact, clear oral mucosa, dentition normal - Neck Neck: Present: supple, normal ROM - Respiratory Respiratory effort: normal Respiratory: bilateral: CTA - Cardiovascular Rhythm: regular Heart Sounds: Present: S1 & S2. Absent: gallop, rub - Extremities Extremities: no ischemia, No edema, Full ROM - Abdominal General gastrointestinal: soft, non-tender, non-distended, normal bowel sounds - Integumentary Integumentary: Present: clear, warm, dry - Neurologic Neurologic: CNII-XII intact, moves all extremities Results - Labs CBC & Chem 7: 07/09/16 10:41 07/07/16 07:49 Labs: Laboratory Last Values WBC 6.9 K/mm3 (4.5-11.0) 07/09/16 10:41 RBC 4.22 M/mm3 (3.65-5.03) 07/09/16 10:41 Hgb 9.1 gm/dl (10.1-14.3) L 07/09/16 10:41 Hct 29.7 % (30.3-42.9) L D 07/09/16 10:41 MCV 70 fl (79-97) L D 07/09/16 10:41 MCH 22 pg (28-32) L 07/09/16 10:41 MCHC 31 % (30-34) 07/09/16 10:41 RDW 28.8 % (13.2-15.2) H 07/09/16 10:41 Plt Count 179 K/mm3 (140-440) 07/09/16 10:41 Lymph % (Auto) 32.9 % (13.4-35.0) 07/07/16 07:49 [place] % (Auto) 8.6 % (0.0-7.3) H 07/07/16 07:49 Eos % (Auto) 4.9 % (0.0-4.3) H 07/07/16 07:49 Baso % (Auto) 0.9 % (0.0-1.8) 07/07/16 07:49 Lymph # 2.1 K/mm3 (1.2-5.4) 07/07/16 07:49 [place] # 0.5 K/mm3 (0.0-0.8) 07/07/16 07:49 Eos # 0.3 K/mm3 (0.0-0.4) 07/07/16 07:49 Baso # 0.1 K/mm3 (0.0-0.1) 07/07/16 07:49 Seg Neutrophils % 52.7 % (40.0-70.0) 07/07/16 07:49 Seg Neutrophils # 3.3 K/mm3 (1.8-7.7) 07/07/16 07:49 Percent Retic 1.89 % (0.78-2.58) 07/06/16 13:22 Sodium 138 mmol/L (137-145) 07/07/16 07:49 Potassium 4.1 mmol/L (3.6-5.0) 07/07/16 07:49 Chloride 102.5 mmol/L (98-107) 07/07/16 07:49 Carbon Dioxide 26 mmol/L (22-30) 07/07/16 07:49 Anion Gap 14 mmol/L 07/07/16 07:49 BUN 9 mg/dL (7-17) 07/07/16 07:49 Creatinine 0.7 mg/dL (0.7-1.2) 07/07/16 07:49 Estimated GFR > 60 ml/min 07/07/16 07:49 BUN/Creatinine Ratio 12.85 % 07/07/16 07:49 Glucose 91 mg/dL (65-100) 07/07/16 07:49 Calcium 8.6 mg/dL (8.4-10.2) 07/07/16 07:49 Iron 22 ug/dL (37-170) L 07/06/16 13:22 TIBC 410 mcg/dL (250-450) 07/06/16 13:22 % Saturation 2.90 % 07/05/16 01:02 Transferrin 397 mg/dl (192-382) H 07/05/16 01:02 Ferritin 3.9 ng/mL (13.0-400.0) L 07/06/16 13:22 Lactate Dehydrogenase 167 units/L (91-180) 07/06/16 13:22 Total Creatine Kinase 69 units/L (30-135) 07/05/16 04:20 Vitamin B12 228.8 pg/mL (211-911) 07/06/16 13:22 Folate 5.42 ng/mL (7.3-26.0) L 07/06/16 13:22 Urine Color Yellow (Yellow) 07/05/16 03:07 Urine Turbidity Clear (Clear) 07/05/16 03:07 Urine pH 6.0 (5.0-7.0) 07/05/16 03:07 Ur Specific [place] 1.017 (1.003-1.030) 07/05/16 03:07 Urine Protein <15 mg/dl mg/dL (Negative) 07/05/16 03:07 Urine Glucose (UA) Neg mg/dL (Negative) 07/05/16 03:07 Urine Ketones Neg mg/dL (Negative) 07/05/16 03:07 Urine Blood Neg (Negative) 07/05/16 03:07 Urine Nitrite Neg (Negative) 07/05/16 03:07 Urine Bilirubin Neg (Negative) 07/05/16 03:07 Urine Urobilinogen 2.0 mg/dL (<2.0) 07/05/16 03:07 Ur Leukocyte Esterase Sm (Negative) 07/05/16 03:07 Urine WBC (Auto) 1.0 /HPF (0.0-6.0) 07/05/16 03:07 Urine RBC (Auto) 2.0 /HPF (0.0-6.0) 07/05/16 03:07 U Epithel Cells (Auto) 2.0 /HPF (0-13.0) 07/05/16 03:07 Urine Mucus Few /HPF 07/05/16 03:07 Urine HCG, Qual Negative (Negative) 07/05/16 03:07 Urine Opiates Screen Presumptive negative 07/05/16 03:07 Urine Methadone Screen Presumptive negative 07/05/16 03:07 Ur Barbiturates Screen Presumptive negative 07/05/16 03:07 Ur Phencyclidine Scrn Presumptive negative 07/05/16 03:07 Ur Amphetamines Screen Presumptive negative 07/05/16 03:07 U Benzodiazepines Scrn Presumptive negative 07/05/16 03:07 Urine Cocaine Screen Presumptive positive 07/05/16 03:07 U Marijuana (THC) Screen Presumptive negative 07/05/16 03:07 Drugs of Abuse Note Disclamer 07/05/16 03:07 Plasma/Serum Alcohol < 0.01 gm% (0-0.07) 07/05/16 01:02 Blood Type O POSITIVE 07/08/16 11:57 Antibody Screen TNR 07/08/16 11:57 VALENTÍN Antibody Screen Negative 07/08/16 11:57 Crossmatch See Detail 07/08/16 11:57
--- NOTE | 2016-07-11 08:51 | Event Note ---
Date: 07/11/16
--- NOTE | 2016-07-11 08:51 | Progress Note ---
Assessment and Plan - Patient Problems (1) Dyskinesia of gallbladder Current Visit: Yes Status: Acute (2) Menorrhagia Current Visit: Yes Status: Acute Qualifiers: Menorrahagia type: M (3) Bipolar disorder Current Visit: Yes Status: Acute Qualifiers: Active/Remission status: A Current bipolar episode type: C Current episode severity: C Psychotic features: P Most recent bipolar episode type: M (4) Iron deficiency anemia Current Visit: Yes Status: Acute Qualifiers: Iron deficiency anemia type: I (5) Noncompliance with medication regimen Current Visit: Yes Status: Acute (6) Suicidal ideation Current Visit: Yes Status: Acute (7) Symptomatic anemia Current Visit: Yes Status: Acute Subjective Date of service: 07/10/16 Interval history: No new issues overnight. PROBLEMS 1. Sucidal ideation followed with psychiatry 2.Lower abdominal pain HIDA revealed GB dyskenisia. No abdominal pain--now resolved 3.Iron deficiency anemia Patient transfused 2 units of PRBC and waiting for result Monitor for 24 hrs for any bleeding and anticipate discharge by tomorrow () if bleeding persist consider for GI evaluation 4. Menorrhagia follow up with OBGYN as OP Objective - Constitutional Vitals: Vital Signs - 12hr 07/10/16 07/10/16 07/11/16 20:51 22:00 00:11 Temperature 97.9 F Pulse Rate [ 74 74 Right] Respiratory 20 18 Rate Blood Pressure 122/74 [Right Arm] O2 Sat by Pulse 98 Oximetry - Labs CBC & Chem 7: 07/09/16 10:41 07/07/16 07:49
[2016-07-11] MEDS: ELAVIL PO SCH ×2 (11:00→21:45)
[2016-07-11] MEDS: ZOLOFT PO SCH (11:00)
[2016-07-11] MEDS: PERCOCET 5/325 PO PRN ×2 (12:34→18:53)
--- NOTE | 2016-07-11 13:03 | Progress Note ---
Subjective - Reason for Consult Consult date: 07/11/16 Reason for consult: Psychiatry Follow-up - Chief Complaint Chief complaint: "I got more sleep" 36 year old black female seen in the ER for psychiatric evaluation. Today patient is calm and cooperative during our assessment. She stated that she slept much better last night. She denies hearing voices and having SI's. She stated that she feels rested for the first time in days. She denies denies depression symptoms or HI's. She denies any side effects from the Trazodone. Mental Status Exam - Vital signs Last Vital Signs Temp 98.7 F 07/11/16 07:00 Pulse 89 07/11/16 07:00 Resp 20 07/11/16 07:00 BP 135/85 07/11/16 07:00 Pulse Ox 98 07/11/16 07:00 - Exam Narrative exam: MSE: Appearance: calm, cooperative Behavior: good eye contact Speech: regular rate and tone Mood: "okay" Affect: congruent to mood Thought Process: linear Thought Content: denies SI/HI's and AVH's Motor Activity: lying in bed Cognition: a/ox 3 Insight: fair Judgment: fair Assessment and Plan Impression: 36 year old black female seen in the ER for psychiatric evaluation. Today patient is calm and cooperative during our assessment. She stated that she slept much better last night. She denies hearing voices and having SI's. She stated that she feels rested for the first time in days. Recommendation/Plan: Evaluate 1013 in 24 hours to determine proper dispo. Continue current psy medication regimen. Benzodiazepines or other controlled medications are not recommended as the addictive potential is high, especially since she has an hx of cocaine and marijuana use. Discussed possible suicidality and medication induced kevin with patient reference antidepressants. Patient is willing to go to the [facility] for outpatient psy services.
[2016-07-11] MEDS: DESYREL PO SCH (21:45)
[2016-07-11] MEDS: XANAX PO SCH (21:45)
[2016-07-11] MEDS: RisperDAL PO SCH (21:46)
[2016-07-12] MEDS: PERCOCET 5/325 PO PRN ×3 (00:49→20:34)
--- NOTE | 2016-07-12 07:48 | Progress Note ---
Assessment and Plan - Patient Problems (1) Dyskinesia of gallbladder Current Visit: Yes Status: Acute Plan to address problem: Etiology of the abdominal pain was felt to be secondary to possible cholelithiasis/passage of stone. HIDA scan was obtained for further evaluation and revealed gallbladder dyskinesia. (2) Iron deficiency anemia Current Visit: Yes Status: Acute Qualifiers: Iron deficiency anemia type: I Plan to address problem: Patient also received blood transfusion for the anemia with stabilization of the H&H. Etiology of the iron deficiency anemia is felt to be secondary to chronic blood loss from menorrhagia. (3) Suicidal ideation Current Visit: Yes Status: Acute Plan to address problem: Patient remains on 1013 status by psych but patient is medically cleared for transfer to inpatient psych facility History Interval history: Patient lying in bed state that she feels fine today. Patient complaining of lower abdominal pain Hospitalist Physical - Constitutional Vitals: Temp Pulse Resp BP Pulse Ox 98.1 F 95 H 16 134/91 98 07/11/16 21:17 07/11/16 21:17 07/11/16 22:00 07/11/16 21:17 07/11/16 21:17 General appearance: Present: no acute distress, well-nourished - EENT Eyes: Present: PERRL, EOM intact ENT: hearing intact, clear oral mucosa - Neck Neck: Present: supple, normal ROM - Respiratory Respiratory effort: normal Respiratory: bilateral: CTA - Cardiovascular Rhythm: regular Heart Sounds: Present: S1 & S2 - Abdominal General gastrointestinal: soft, tender, non-distended, normal bowel sounds Localized gastrointestinal: tender: RLQ, LLQ - Psychiatric Psychiatric: appropriate mood/affect, intact judgment & insight - Neurologic Neurologic: CNII-XII intact, moves all extremities Results - Labs CBC & Chem 7: 07/09/16 10:41 07/07/16 07:49 Labs: Laboratory Last Values WBC 6.9 K/mm3 (4.5-11.0) 07/09/16 10:41 RBC 4.22 M/mm3 (3.65-5.03) 07/09/16 10:41 Hgb 9.1 gm/dl (10.1-14.3) L 07/09/16 10:41 Hct 29.7 % (30.3-42.9) L D 07/09/16 10:41 MCV 70 fl (79-97) L D 07/09/16 10:41 MCH 22 pg (28-32) L 07/09/16 10:41 MCHC 31 % (30-34) 07/09/16 10:41 RDW 28.8 % (13.2-15.2) H 07/09/16 10:41 Plt Count 179 K/mm3 (140-440) 07/09/16 10:41 Lymph % (Auto) 32.9 % (13.4-35.0) 07/07/16 07:49 [place] % (Auto) 8.6 % (0.0-7.3) H 07/07/16 07:49 Eos % (Auto) 4.9 % (0.0-4.3) H 07/07/16 07:49 Baso % (Auto) 0.9 % (0.0-1.8) 07/07/16 07:49 Lymph # 2.1 K/mm3 (1.2-5.4) 07/07/16 07:49 [place] # 0.5 K/mm3 (0.0-0.8) 07/07/16 07:49 Eos # 0.3 K/mm3 (0.0-0.4) 07/07/16 07:49 Baso # 0.1 K/mm3 (0.0-0.1) 07/07/16 07:49 Seg Neutrophils % 52.7 % (40.0-70.0) 07/07/16 07:49 Seg Neutrophils # 3.3 K/mm3 (1.8-7.7) 07/07/16 07:49 Percent Retic 1.89 % (0.78-2.58) 07/06/16 13:22 Sodium 138 mmol/L (137-145) 07/07/16 07:49 Potassium 4.1 mmol/L (3.6-5.0) 07/07/16 07:49 Chloride 102.5 mmol/L (98-107) 07/07/16 07:49 Carbon Dioxide 26 mmol/L (22-30) 07/07/16 07:49 Anion Gap 14 mmol/L 07/07/16 07:49 BUN 9 mg/dL (7-17) 07/07/16 07:49 Creatinine 0.7 mg/dL (0.7-1.2) 07/07/16 07:49 Estimated GFR > 60 ml/min 07/07/16 07:49 BUN/Creatinine Ratio 12.85 % 07/07/16 07:49 Glucose 91 mg/dL (65-100) 07/07/16 07:49 Calcium 8.6 mg/dL (8.4-10.2) 07/07/16 07:49 Iron 22 ug/dL (37-170) L 07/06/16 13:22 TIBC 410 mcg/dL (250-450) 07/06/16 13:22 % Saturation 2.90 % 07/05/16 01:02 Transferrin 397 mg/dl (192-382) H 07/05/16 01:02 Ferritin 3.9 ng/mL (13.0-400.0) L 07/06/16 13:22 Lactate Dehydrogenase 167 units/L (91-180) 07/06/16 13:22 Total Creatine Kinase 69 units/L (30-135) 07/05/16 04:20 Vitamin B12 228.8 pg/mL (211-911) 07/06/16 13:22 Folate 5.42 ng/mL (7.3-26.0) L 07/06/16 13:22 Urine Color Yellow (Yellow) 07/05/16 03:07 Urine Turbidity Clear (Clear) 07/05/16 03:07 Urine pH 6.0 (5.0-7.0) 07/05/16 03:07 Ur Specific [place] 1.017 (1.003-1.030) 07/05/16 03:07 Urine Protein <15 mg/dl mg/dL (Negative) 07/05/16 03:07 Urine Glucose (UA) Neg mg/dL (Negative) 07/05/16 03:07 Urine Ketones Neg mg/dL (Negative) 07/05/16 03:07 Urine Blood Neg (Negative) 07/05/16 03:07 Urine Nitrite Neg (Negative) 07/05/16 03:07 Urine Bilirubin Neg (Negative) 07/05/16 03:07 Urine Urobilinogen 2.0 mg/dL (<2.0) 07/05/16 03:07 Ur Leukocyte Esterase Sm (Negative) 07/05/16 03:07 Urine WBC (Auto) 1.0 /HPF (0.0-6.0) 07/05/16 03:07 Urine RBC (Auto) 2.0 /HPF (0.0-6.0) 07/05/16 03:07 U Epithel Cells (Auto) 2.0 /HPF (0-13.0) 07/05/16 03:07 Urine Mucus Few /HPF 07/05/16 03:07 Urine HCG, Qual Negative (Negative) 07/05/16 03:07 Urine Opiates Screen Presumptive negative 07/05/16 03:07 Urine Methadone Screen Presumptive negative 07/05/16 03:07 Ur Barbiturates Screen Presumptive negative 07/05/16 03:07 Ur Phencyclidine Scrn Presumptive negative 07/05/16 03:07 Ur Amphetamines Screen Presumptive negative 07/05/16 03:07 U Benzodiazepines Scrn Presumptive negative 07/05/16 03:07 Urine Cocaine Screen Presumptive positive 07/05/16 03:07 U Marijuana (THC) Screen Presumptive negative 07/05/16 03:07 Drugs of Abuse Note Disclamer 07/05/16 03:07 Plasma/Serum Alcohol < 0.01 gm% (0-0.07) 07/05/16 01:02 Blood Type O POSITIVE 07/08/16 11:57 Antibody Screen TNR 07/08/16 11:57 VALENTÍN Antibody Screen Negative 07/08/16 11:57 Crossmatch See Detail 07/08/16 11:57
[2016-07-12] MEDS: ZOLOFT PO SCH (09:51)
[2016-07-12] MEDS: ELAVIL PO SCH ×2 (09:52→22:09)
--- NOTE | 2016-07-12 14:42 | Progress Note ---
Subjective - Reason for Consult Consult date: 07/12/16 Reason for consult: Psychiatry Follow-up - Chief Complaint Chief complaint: "I am so tired" 36 year old black female seen in the ER for psychiatric evaluation. Today patient is calm and cooperative during our assessment. She stated that her sleep is not "right." On assessment patient looks tired and she stated, "I feel tired." She denies SI/HI's, AVH"S, or depression. She denies side effects from her current psy medication regimen. Mental Status Exam - Vital signs Last Vital Signs Temp 98.8 F 07/12/16 07:00 Pulse 75 07/12/16 07:00 Resp 18 07/12/16 07:00 BP 106/61 07/12/16 07:00 Pulse Ox 98 07/11/16 21:17 - Exam Narrative exam: MSE: Appearance: calm, cooperative Behavior: good eye contact Speech: regular rate and tone Mood: "okay" Affect: congruent to mood Thought Process: linear Thought Content: denies SI/HI's and AVH's Motor Activity: lying in bed Cognition: a/ox 3 Insight: fair Judgment: fair Assessment and Plan Impression: 36 year old black female seen in the ER for psychiatric evaluation. Today patient is calm and cooperative during our assessment. She stated that her sleep is not "right." On assessment patient looks tired and she stated, "I feel tired." She denies SI/HI's and AVH's. Patient is no threat to self. Recommendation/Plan: Rescind 1013. Continue Risperdal 1 mg PO HS for mood and continue other psy medication regimen. Benzodiazepines or other controlled medications are not recommended as the addictive potential is high, especially since she has an hx of cocaine and marijuana use. Discussed possible suicidality and medication induced kevin with patient reference antidepressants. Patient is willing to go to the [facility] for outpatient psy services. Increase Trazodone to 100 mg PO HS for sleep.
[2016-07-12] MEDS: RisperDAL PO SCH (22:09)
[2016-07-12] MEDS: DESYREL PO SCH (22:09)
[2016-07-12] MEDS: XANAX PO SCH (22:09)
[2016-07-13 05:41] LABS: Mean Corpuscular HGB Conc 30 % (30-34); Mean Corpuscular Volume 71 fl (79-97); Platelet Count 143 K/mm3 (140-440); Red Blood Count 4.22 M/mm3 (3.65-5.03)
[2016-07-13 05:51] LABS: Hematocrit 30.1 % (30.3-42.9); Hemoglobin 8.9 gm/dl (10.1-14.3); Mean Corpuscular Hemoglobin 21 pg (28-32); Red Cell Distribution Width 29.2 % (13.2-15.2)
[2016-07-13 06:15] LABS: Alanine Aminotransferase 17 units/L (7-56); Albumin 3.5 g/dL (3.9-5); Albumin/Globulin Ratio 1.5 %; Alkaline Phosphatase 49 units/L (35-129); Anion Gap 16 mmol/L; Bilirubin,Total < 0.20 mg/dL (0.1-1.2); Blood Urea Nitrogen 12 mg/dL (7-17); Calcium 8.5 mg/dL (8.4-10.2); Carbon Dioxide 24 mmol/L (22-30); Glucose 96 mg/dL (65-100); Potassium 4.6 mmol/L (3.6-5.0); Sodium 136 mmol/L (137-145); Total Protein 5.9 g/dL (6.3-8.2)
[2016-07-13 06:45] LABS: Anisocytosis 3+; Blastocytes % (Manual) 0 %; Hypochromasia 2+
[2016-07-13 06:46] LABS: Diff Status Complete
[2016-07-13] MEDS: PERCOCET 5/325 PO PRN ×2 (08:11→20:43)
--- NOTE | 2016-07-13 09:51 | Progress Note ---
Assessment and Plan - Patient Problems (1) Bipolar disorder Current Visit: Yes Status: Acute Qualifiers: Active/Remission status: in full remission Current bipolar episode type: C Current episode severity: C Psychotic features: P Most recent bipolar episode type: M Plan to address problem: Cont risperdal (2) Cocaine abuse Current Visit: Yes Status: Chronic Plan to address problem: Counselled about cocaine abuse. Patient to follow up with Outpatient psych /Addiction rehab . (3) Dyskinesia of gallbladder Current Visit: Yes Status: Acute (4) Symptomatic anemia Current Visit: Yes Status: Acute History Interval history: Pain is better No suicidal ideation.1013 to be rescinded. Hospitalist Physical - Constitutional Vitals: Temp Pulse Resp BP Pulse Ox 98.3 F 70 18 133/83 70 L 07/13/16 07:00 07/13/16 07:00 07/13/16 08:11 07/13/16 07:00 07/13/16 07:00 General appearance: Present: no acute distress, well-nourished - EENT Eyes: Present: PERRL, EOM intact ENT: hearing intact, clear oral mucosa, dentition normal - Neck Neck: Present: supple, normal ROM - Respiratory Respiratory effort: normal Respiratory: negative: CTA - Cardiovascular Heart rate: 70 Rhythm: regular Heart Sounds: Present: S1 & S2 - Extremities Extremities: no ischemia, pulses intact, pulses symmetrical Peripheral Pulses: within normal limits - Abdominal General gastrointestinal: soft, non-tender, non-distended, normal bowel sounds - Integumentary Integumentary: Present: clear, warm, dry - Psychiatric Psychiatric: appropriate mood/affect - Neurologic Neurologic: gait normal - Allied Health Allied health notes reviewed: nursing, case management Results - Labs CBC & Chem 7: 07/13/16 04:59 07/13/16 04:59 Labs: Laboratory Last Values WBC 5.0 K/mm3 (4.5-11.0) 07/13/16 04:59 RBC 4.22 M/mm3 (3.65-5.03) 07/13/16 04:59 Hgb 8.9 gm/dl (10.1-14.3) L 07/13/16 04:59 Hct 30.1 % (30.3-42.9) L 07/13/16 04:59 MCV 71 fl (79-97) L 07/13/16 04:59 MCH 21 pg (28-32) L 07/13/16 04:59 MCHC 30 % (30-34) 07/13/16 04:59 RDW 29.2 % (13.2-15.2) H 07/13/16 04:59 Plt Count 143 K/mm3 (140-440) 07/13/16 04:59 Lymph % (Auto) 32.9 % (13.4-35.0) 07/07/16 07:49 [place] % (Auto) 8.6 % (0.0-7.3) H 07/07/16 07:49 Eos % (Auto) 4.9 % (0.0-4.3) H 07/07/16 07:49 Baso % (Auto) 0.9 % (0.0-1.8) 07/07/16 07:49 Lymph # 2.1 K/mm3 (1.2-5.4) 07/07/16 07:49 [place] # 0.5 K/mm3 (0.0-0.8) 07/07/16 07:49 Eos # 0.3 K/mm3 (0.0-0.4) 07/07/16 07:49 Baso # 0.1 K/mm3 (0.0-0.1) 07/07/16 07:49 Add Manual Diff Complete 07/13/16 04:59 Total Counted 100 07/13/16 04:59 Seg Neutrophils % 52.7 % (40.0-70.0) 07/07/16 07:49 Seg Neuts % (Manual) 46.0 % (40.0-70.0) 07/13/16 04:59 Band Neutrophils % 0 % 07/13/16 04:59 Lymphocytes % (Manual) 36.0 % (13.4-35.0) H 07/13/16 04:59 Reactive Lymphs % (Man) 0 % 07/13/16 04:59 Monocytes % (Manual) 12.0 % (0.0-7.3) H 07/13/16 04:59 Eosinophils % (Manual) 5.0 % (0.0-4.3) H 07/13/16 04:59 Basophils % (Manual) 1.0 % (0.0-1.8) 07/13/16 04:59 Metamyelocytes % 0 % 07/13/16 04:59 Myelocytes % 0 % 07/13/16 04:59 Promyelocytes % 0 % 07/13/16 04:59 Blast Cells % 0 % 07/13/16 04:59 Nucleated RBC % Not Reportable 07/13/16 04:59 Seg Neutrophils # 3.3 K/mm3 (1.8-7.7) 07/07/16 07:49 Seg Neutrophils # Man 2.3 K/mm3 (1.8-7.7) 07/13/16 04:59 Band Neutrophils # 0.0 K/mm3 07/13/16 04:59 Lymphocytes # (Manual) 1.8 K/mm3 (1.2-5.4) 07/13/16 04:59 Abs React Lymphs (Man) 0.0 K/mm3 07/13/16 04:59 Monocytes # (Manual) 0.6 K/mm3 (0.0-0.8) 07/13/16 04:59 Eosinophils # (Manual) 0.3 K/mm3 (0.0-0.4) 07/13/16 04:59 Basophils # (Manual) 0.1 K/mm3 (0.0-0.1) 07/13/16 04:59 Metamyelocytes # 0.0 K/mm3 07/13/16 04:59 Myelocytes # 0.0 K/mm3 07/13/16 04:59 Promyelocytes # 0.0 K/mm3 07/13/16 04:59 Blast Cells # 0.0 K/mm3 07/13/16 04:59 WBC Morphology Not Reportable 07/13/16 04:59 Hypersegmented Neuts Not Reportable 07/13/16 04:59 Hyposegmented Neuts Not Reportable 07/13/16 04:59 Hypogranular Neuts Not Reportable 07/13/16 04:59 Smudge Cells Not Reportable 07/13/16 04:59 Toxic Granulation Not Reportable 07/13/16 04:59 Toxic Vacuolation Not Reportable 07/13/16 04:59 Dohle Bodies Not Reportable 07/13/16 04:59 Pelger-Huet Anomaly Not Reportable 07/13/16 04:59 Chely Rods Not Reportable 07/13/16 04:59 Platelet Estimate Appears normal 07/13/16 04:59 Clumped Platelets Not Reportable 07/13/16 04:59 Plt Clumps, EDTA Not Reportable 07/13/16 04:59 Large Platelets Not Reportable 07/13/16 04:59 Giant Platelets Not Reportable 07/13/16 04:59 Platelet Satelliting Not Reportable 07/13/16 04:59 Plt Morphology Comment Not Reportable 07/13/16 04:59 RBC Morphology Not Reportable 07/13/16 04:59 Dimorphic RBCs Not Reportable 07/13/16 04:59 Polychromasia Not Reportable 07/13/16 04:59 Hypochromasia 2+ 07/13/16 04:59 Poikilocytosis Not Reportable 07/13/16 04:59 Anisocytosis 3+ 07/13/16 04:59 Microcytosis Not Reportable 07/13/16 04:59 Macrocytosis Not Reportable 07/13/16 04:59 Spherocytes Not Reportable 07/13/16 04:59 Pappenheimer Bodies Not Reportable 07/13/16 04:59 Sickle Cells Not Reportable 07/13/16 04:59 Target Cells Not Reportable 07/13/16 04:59 Tear Drop Cells Not Reportable 07/13/16 04:59 Ovalocytes Not Reportable 07/13/16 04:59 Helmet Cells Not Reportable 07/13/16 04:59 Beck-[place] Bodies Not Reportable 07/13/16 04:59 [place] Rings Not Reportable 07/13/16 04:59 [place] Cells Not Reportable 07/13/16 04:59 Bite Cells Not Reportable 07/13/16 04:59 Crenated Cell Not Reportable 07/13/16 04:59 Elliptocytes Not Reportable 07/13/16 04:59 Acanthocytes (Spur) Not Reportable 07/13/16 04:59 Rouleaux Not Reportable 07/13/16 04:59 Hemoglobin C Crystals Not Reportable 07/13/16 04:59 Schistocytes Not Reportable 07/13/16 04:59 Malaria parasites Not Reportable 07/13/16 04:59 Percent Retic 1.89 % (0.78-2.58) 07/06/16 13:22 Natan Bodies Not Reportable 07/13/16 04:59 Hem Pathologist Commnt No 07/13/16 04:59 Sodium 136 mmol/L (137-145) L 07/13/16 04:59 Potassium 4.6 mmol/L (3.6-5.0) 07/13/16 04:59 Chloride 101.0 mmol/L (98-107) 07/13/16 04:59 Carbon Dioxide 24 mmol/L (22-30) 07/13/16 04:59 Anion Gap 16 mmol/L 07/13/16 04:59 BUN 12 mg/dL (7-17) 07/13/16 04:59 Creatinine 0.6 mg/dL (0.7-1.2) L 07/13/16 04:59 Estimated GFR > 60 ml/min 07/13/16 04:59 BUN/Creatinine Ratio 20.00 % 07/13/16 04:59 Glucose 96 mg/dL (65-100) 07/13/16 04:59 Calcium 8.5 mg/dL (8.4-10.2) 07/13/16 04:59 Iron 22 ug/dL (37-170) L 07/06/16 13:22 TIBC 410 mcg/dL (250-450) 07/06/16 13:22 % Saturation 2.90 % 07/05/16 01:02 Transferrin 397 mg/dl (192-382) H 07/05/16 01:02 Ferritin 3.9 ng/mL (13.0-400.0) L 07/06/16 13:22 Total Bilirubin < 0.20 mg/dL (0.1-1.2) 07/13/16 04:59 AST 20 units/L (5-40) 07/13/16 04:59 ALT 17 units/L (7-56) 07/13/16 04:59 Alkaline Phosphatase 49 units/L (35-129) 07/13/16 04:59 Lactate Dehydrogenase 167 units/L (91-180) 07/06/16 13:22 Total Creatine Kinase 69 units/L (30-135) 07/05/16 04:20 Total Protein 5.9 g/dL (6.3-8.2) L 07/13/16 04:59 Albumin 3.5 g/dL (3.9-5) L 07/13/16 04:59 Albumin/Globulin Ratio 1.5 % 07/13/16 04:59 Vitamin B12 228.8 pg/mL (211-911) 07/06/16 13:22 Folate 5.42 ng/mL (7.3-26.0) L 07/06/16 13:22 Urine Color Yellow (Yellow) 07/05/16 03:07 Urine Turbidity Clear (Clear) 07/05/16 03:07 Urine pH 6.0 (5.0-7.0) 07/05/16 03:07 Ur Specific [place] 1.017 (1.003-1.030) 07/05/16 03:07 Urine Protein <15 mg/dl mg/dL (Negative) 07/05/16 03:07 Urine Glucose (UA) Neg mg/dL (Negative) 07/05/16 03:07 Urine Ketones Neg mg/dL (Negative) 07/05/16 03:07 Urine Blood Neg (Negative) 07/05/16 03:07 Urine Nitrite Neg (Negative) 07/05/16 03:07 Urine Bilirubin Neg (Negative) 07/05/16 03:07 Urine Urobilinogen 2.0 mg/dL (<2.0) 07/05/16 03:07 Ur Leukocyte Esterase Sm (Negative) 07/05/16 03:07 Urine WBC (Auto) 1.0 /HPF (0.0-6.0) 07/05/16 03:07 Urine RBC (Auto) 2.0 /HPF (0.0-6.0) 07/05/16 03:07 U Epithel Cells (Auto) 2.0 /HPF (0-13.0) 07/05/16 03:07 Urine Mucus Few /HPF 07/05/16 03:07 Urine HCG, Qual Negative (Negative) 07/05/16 03:07 Urine Opiates Screen Presumptive negative 07/05/16 03:07 Urine Methadone Screen Presumptive negative 07/05/16 03:07 Ur Barbiturates Screen Presumptive negative 07/05/16 03:07 Ur Phencyclidine Scrn Presumptive negative 07/05/16 03:07 Ur Amphetamines Screen Presumptive negative 07/05/16 03:07 U Benzodiazepines Scrn Presumptive negative 07/05/16 03:07 Urine Cocaine Screen Presumptive positive 07/05/16 03:07 U Marijuana (THC) Screen Presumptive negative 07/05/16 03:07 Drugs of Abuse Note Disclamer 07/05/16 03:07 Plasma/Serum Alcohol < 0.01 gm% (0-0.07) 07/05/16 01:02 Blood Type O POSITIVE 07/08/16 11:57 Antibody Screen TNR 07/08/16 11:57 VALETNÍN Antibody Screen Negative 07/08/16 11:57 Crossmatch See Detail 07/08/16 11:57
[2016-07-13] MEDS: ELAVIL PO SCH ×2 (09:53→22:31)
[2016-07-13] MEDS: ZOLOFT PO SCH (09:53)
--- NOTE | 2016-07-13 12:37 | Discharge Summary ---
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[employer] Hospitalization Condition: Stable Disposition: DISCHARGED TO HOME OR SELFCARE - Discharge Diagnoses (1) Bipolar disorder Status: Acute Qualifiers: Active/Remission status: A Current bipolar episode type: C Current episode severity: C Psychotic features: P Most recent bipolar episode type: M (2) Cocaine abuse Status: Acute (3) Dyskinesia of gallbladder Status: Acute (4) Symptomatic anemia Status: Acute Core Measure Documentation - Palliative Care Palliative Care/ Comfort Measures: Not Applicable Exam - Constitutional Vitals: Temp Pulse Resp BP Pulse Ox 98.3 F 70 18 133/83 70 L 07/13/16 07:00 07/13/16 07:00 07/13/16 08:11 07/13/16 07:00 07/13/16 07:00 General appearance: Present: no acute distress, well-nourished - EENT Eyes: Present: PERRL ENT: hearing intact, clear oral mucosa - Neck Neck: Present: supple, normal ROM - Respiratory Respiratory effort: normal Respiratory: bilateral: CTA - Cardiovascular Heart Sounds: Present: S1 & S2. Absent: rub, click - Extremities Extremities: pulses symmetrical, No edema Peripheral Pulses: within normal limits - Abdominal General gastrointestinal: Present: soft, non-tender, non-distended, normal bowel sounds Female genitourinary: Present: normal - Integumentary Integumentary: Present: clear, warm, dry - Musculoskeletal Musculoskeletal: gait normal, strength equal bilaterally - Psychiatric Psychiatric: appropriate mood/affect, intact judgment & insight - Neurologic Neurologic: CNII-XII intact, moves all extremities Plan Activity: no restrictions Diet: regular Follow up with: ARGENTINA ZAMORA MD [Staff Physician] - 7 Days BRENTON ISLAS MD [Primary Care Provider] - 7 Days YENY PATIÑO MD [Staff Physician] - 7 Days
[2016-07-13] MEDS: XANAX PO SCH (22:30)
[2016-07-13] MEDS: RisperDAL PO SCH (22:31)
[2016-07-13] MEDS: DESYREL PO SCH (22:31)
[2016-07-14] MEDS: PERCOCET 5/325 PO PRN ×2 (09:20→17:41)
[2016-07-14] MEDS: ELAVIL PO SCH ×2 (09:20→21:41)
[2016-07-14] MEDS: ZOLOFT PO SCH (09:20)
--- NOTE | 2016-07-14 16:37 | Progress Note ---
Assessment and Plan - Patient Problems (1) Dyskinesia of gallbladder Current Visit: Yes Status: Acute Plan to address problem: Etiology of the abdominal pain was felt to be secondary to possible cholelithiasis/passage of stone. HIDA scan was obtained for further evaluation and revealed gallbladder dyskinesia. Surgery after discharge if symptoms recur. (2) Bipolar disorder Current Visit: Yes Status: Acute Qualifiers: Active/Remission status: in full remission Current bipolar episode type: C Current episode severity: C Psychotic features: P Most recent bipolar episode type: M Plan to address problem: Cont risperdal (3) Cocaine abuse Current Visit: Yes Status: Chronic Plan to address problem: Counselled about cocaine abuse. Patient to follow up with Outpatient psych /Addiction rehab . (4) Symptomatic anemia Current Visit: Yes Status: Chronic Plan to address problem: Was transfused.Iron deficient.Cont Iron tablets after discharge. (5) Discharge planning issues Current Visit: Yes Status: Acute Plan to address problem: Dischage tomorrow after mental health sees the patient.1013 rescinded. History Interval history: Pain is better No suicidal ideation.1013 to be rescinded. Hospitalist Physical - Constitutional Vitals: Temp Pulse Resp BP Pulse Ox 98.8 F 92 H 20 161/99 97 07/13/16 23:00 07/13/16 23:00 07/13/16 23:00 07/13/16 23:00 07/13/16 23:00 General appearance: Present: no acute distress, well-nourished Results - Labs CBC & Chem 7: 07/13/16 04:59 07/13/16 04:59 Labs: Laboratory Last Values WBC 5.0 K/mm3 (4.5-11.0) 07/13/16 04:59 RBC 4.22 M/mm3 (3.65-5.03) 07/13/16 04:59 Hgb 8.9 gm/dl (10.1-14.3) L 07/13/16 04:59 Hct 30.1 % (30.3-42.9) L 07/13/16 04:59 MCV 71 fl (79-97) L 07/13/16 04:59 MCH 21 pg (28-32) L 07/13/16 04:59 MCHC 30 % (30-34) 07/13/16 04:59 RDW 29.2 % (13.2-15.2) H 07/13/16 04:59 Plt Count 143 K/mm3 (140-440) 07/13/16 04:59 Lymph % (Auto) 32.9 % (13.4-35.0) 07/07/16 07:49 [place] % (Auto) 8.6 % (0.0-7.3) H 07/07/16 07:49 Eos % (Auto) 4.9 % (0.0-4.3) H 07/07/16 07:49 Baso % (Auto) 0.9 % (0.0-1.8) 07/07/16 07:49 Lymph # 2.1 K/mm3 (1.2-5.4) 07/07/16 07:49 [place] # 0.5 K/mm3 (0.0-0.8) 07/07/16 07:49 Eos # 0.3 K/mm3 (0.0-0.4) 07/07/16 07:49 Baso # 0.1 K/mm3 (0.0-0.1) 07/07/16 07:49 Add Manual Diff Complete 07/13/16 04:59 Total Counted 100 07/13/16 04:59 Seg Neutrophils % 52.7 % (40.0-70.0) 07/07/16 07:49 Seg Neuts % (Manual) 46.0 % (40.0-70.0) 07/13/16 04:59 Band Neutrophils % 0 % 07/13/16 04:59 Lymphocytes % (Manual) 36.0 % (13.4-35.0) H 07/13/16 04:59 Reactive Lymphs % (Man) 0 % 07/13/16 04:59 Monocytes % (Manual) 12.0 % (0.0-7.3) H 07/13/16 04:59 Eosinophils % (Manual) 5.0 % (0.0-4.3) H 07/13/16 04:59 Basophils % (Manual) 1.0 % (0.0-1.8) 07/13/16 04:59 Metamyelocytes % 0 % 07/13/16 04:59 Myelocytes % 0 % 07/13/16 04:59 Promyelocytes % 0 % 07/13/16 04:59 Blast Cells % 0 % 07/13/16 04:59 Nucleated RBC % Not Reportable 07/13/16 04:59 Seg Neutrophils # 3.3 K/mm3 (1.8-7.7) 07/07/16 07:49 Seg Neutrophils # Man 2.3 K/mm3 (1.8-7.7) 07/13/16 04:59 Band Neutrophils # 0.0 K/mm3 07/13/16 04:59 Lymphocytes # (Manual) 1.8 K/mm3 (1.2-5.4) 07/13/16 04:59 Abs React Lymphs (Man) 0.0 K/mm3 07/13/16 04:59 Monocytes # (Manual) 0.6 K/mm3 (0.0-0.8) 07/13/16 04:59 Eosinophils # (Manual) 0.3 K/mm3 (0.0-0.4) 07/13/16 04:59 Basophils # (Manual) 0.1 K/mm3 (0.0-0.1) 07/13/16 04:59 Metamyelocytes # 0.0 K/mm3 07/13/16 04:59 Myelocytes # 0.0 K/mm3 07/13/16 04:59 Promyelocytes # 0.0 K/mm3 07/13/16 04:59 Blast Cells # 0.0 K/mm3 07/13/16 04:59 WBC Morphology Not Reportable 07/13/16 04:59 Hypersegmented Neuts Not Reportable 07/13/16 04:59 Hyposegmented Neuts Not Reportable 07/13/16 04:59 Hypogranular Neuts Not Reportable 07/13/16 04:59 Smudge Cells Not Reportable 07/13/16 04:59 Toxic Granulation Not Reportable 07/13/16 04:59 Toxic Vacuolation Not Reportable 07/13/16 04:59 Dohle Bodies Not Reportable 07/13/16 04:59 Pelger-Huet Anomaly Not Reportable 07/13/16 04:59 Chely Rods Not Reportable 07/13/16 04:59 Platelet Estimate Appears normal 07/13/16 04:59 Clumped Platelets Not Reportable 07/13/16 04:59 Plt Clumps, EDTA Not Reportable 07/13/16 04:59 Large Platelets Not Reportable 07/13/16 04:59 Giant Platelets Not Reportable 07/13/16 04:59 Platelet Satelliting Not Reportable 07/13/16 04:59 Plt Morphology Comment Not Reportable 07/13/16 04:59 RBC Morphology Not Reportable 07/13/16 04:59 Dimorphic RBCs Not Reportable 07/13/16 04:59 Polychromasia Not Reportable 07/13/16 04:59 Hypochromasia 2+ 07/13/16 04:59 Poikilocytosis Not Reportable 07/13/16 04:59 Anisocytosis 3+ 07/13/16 04:59 Microcytosis Not Reportable 07/13/16 04:59 Macrocytosis Not Reportable 07/13/16 04:59 Spherocytes Not Reportable 07/13/16 04:59 Pappenheimer Bodies Not Reportable 07/13/16 04:59 Sickle Cells Not Reportable 07/13/16 04:59 Target Cells Not Reportable 07/13/16 04:59 Tear Drop Cells Not Reportable 07/13/16 04:59 Ovalocytes Not Reportable 07/13/16 04:59 Helmet Cells Not Reportable 07/13/16 04:59 [place] Bodies Not Reportable 07/13/16 04:59 [place] Rings Not Reportable 07/13/16 04:59 [place] Cells Not Reportable 07/13/16 04:59 Bite Cells Not Reportable 07/13/16 04:59 Crenated Cell Not Reportable 07/13/16 04:59 Elliptocytes Not Reportable 07/13/16 04:59 Acanthocytes (Spur) Not Reportable 07/13/16 04:59 Rouleaux Not Reportable 07/13/16 04:59 Hemoglobin C Crystals Not Reportable 07/13/16 04:59 Schistocytes Not Reportable 07/13/16 04:59 Malaria parasites Not Reportable 07/13/16 04:59 Percent Retic 1.89 % (0.78-2.58) 07/06/16 13:22 Natan Bodies Not Reportable 07/13/16 04:59 Hem Pathologist Commnt No 07/13/16 04:59 Sodium 136 mmol/L (137-145) L 07/13/16 04:59 Potassium 4.6 mmol/L (3.6-5.0) 07/13/16 04:59 Chloride 101.0 mmol/L (98-107) 07/13/16 04:59 Carbon Dioxide 24 mmol/L (22-30) 07/13/16 04:59 Anion Gap 16 mmol/L 07/13/16 04:59 BUN 12 mg/dL (7-17) 07/13/16 04:59 Creatinine 0.6 mg/dL (0.7-1.2) L 07/13/16 04:59 Estimated GFR > 60 ml/min 07/13/16 04:59 BUN/Creatinine Ratio 20.00 % 07/13/16 04:59 Glucose 96 mg/dL (65-100) 07/13/16 04:59 Calcium 8.5 mg/dL (8.4-10.2) 07/13/16 04:59 Iron 22 ug/dL (37-170) L 07/06/16 13:22 TIBC 410 mcg/dL (250-450) 07/06/16 13:22 % Saturation 2.90 % 07/05/16 01:02 Transferrin 397 mg/dl (192-382) H 07/05/16 01:02 Ferritin 3.9 ng/mL (13.0-400.0) L 07/06/16 13:22 Total Bilirubin < 0.20 mg/dL (0.1-1.2) 07/13/16 04:59 AST 20 units/L (5-40) 07/13/16 04:59 ALT 17 units/L (7-56) 07/13/16 04:59 Alkaline Phosphatase 49 units/L (35-129) 07/13/16 04:59 Lactate Dehydrogenase 167 units/L (91-180) 07/06/16 13:22 Total Creatine Kinase 69 units/L (30-135) 07/05/16 04:20 Total Protein 5.9 g/dL (6.3-8.2) L 07/13/16 04:59 Albumin 3.5 g/dL (3.9-5) L 07/13/16 04:59 Albumin/Globulin Ratio 1.5 % 07/13/16 04:59 Vitamin B12 228.8 pg/mL (211-911) 07/06/16 13:22 Folate 5.42 ng/mL (7.3-26.0) L 07/06/16 13:22 Urine Color Yellow (Yellow) 07/05/16 03:07 Urine Turbidity Clear (Clear) 07/05/16 03:07 Urine pH 6.0 (5.0-7.0) 07/05/16 03:07 Ur Specific [place] 1.017 (1.003-1.030) 07/05/16 03:07 Urine Protein <15 mg/dl mg/dL (Negative) 07/05/16 03:07 Urine Glucose (UA) Neg mg/dL (Negative) 07/05/16 03:07 Urine Ketones Neg mg/dL (Negative) 07/05/16 03:07 Urine Blood Neg (Negative) 07/05/16 03:07 Urine Nitrite Neg (Negative) 07/05/16 03:07 Urine Bilirubin Neg (Negative) 07/05/16 03:07 Urine Urobilinogen 2.0 mg/dL (<2.0) 07/05/16 03:07 Ur Leukocyte Esterase Sm (Negative) 07/05/16 03:07 Urine WBC (Auto) 1.0 /HPF (0.0-6.0) 07/05/16 03:07 Urine RBC (Auto) 2.0 /HPF (0.0-6.0) 07/05/16 03:07 U Epithel Cells (Auto) 2.0 /HPF (0-13.0) 07/05/16 03:07 Urine Mucus Few /HPF 07/05/16 03:07 Urine HCG, Qual Negative (Negative) 07/05/16 03:07 Urine Opiates Screen Presumptive negative 07/05/16 03:07 Urine Methadone Screen Presumptive negative 07/05/16 03:07 Ur Barbiturates Screen Presumptive negative 07/05/16 03:07 Ur Phencyclidine Scrn Presumptive negative 07/05/16 03:07 Ur Amphetamines Screen Presumptive negative 07/05/16 03:07 U Benzodiazepines Scrn Presumptive negative 07/05/16 03:07 Urine Cocaine Screen Presumptive positive 07/05/16 03:07 U Marijuana (THC) Screen Presumptive negative 07/05/16 03:07 Drugs of Abuse Note Disclamer 07/05/16 03:07 Plasma/Serum Alcohol < 0.01 gm% (0-0.07) 07/05/16 01:02 Blood Type O POSITIVE 07/08/16 11:57 Antibody Screen TNR 07/08/16 11:57 VALENTÍN Antibody Screen Negative 07/08/16 11:57 Crossmatch See Detail 07/08/16 11:57
[2016-07-14] MEDS: FOLVITE PO SCH (21:40)
[2016-07-14] MEDS: RisperDAL PO SCH (21:41)
[2016-07-14] MEDS: FEOSOL PO SCH (21:41)
[2016-07-14] MEDS: DESYREL PO SCH (21:41)
[2016-07-14] MEDS: XANAX PO SCH (21:41)
[2016-07-15 07:32] VITALS: BP 133/88
--- NOTE | 2016-07-15 08:06 | Progress Note ---
Assessment and Plan - Patient Problems (1) Dyskinesia of gallbladder Current Visit: Yes Status: Acute (2) Iron deficiency anemia Current Visit: Yes Status: Acute Qualifiers: Iron deficiency anemia type: I (3) Suicidal ideation Current Visit: Yes Status: Acute Hospitalist Physical - Constitutional Vitals: Temp Pulse Resp BP Pulse Ox 98.0 F 82 20 133/88 100 07/15/16 07:28 07/15/16 07:28 07/15/16 07:28 07/15/16 07:28 07/15/16 07:28 General appearance: Present: no acute distress, well-nourished Results - Labs CBC & Chem 7: 07/13/16 04:59 07/13/16 04:59 Labs: Laboratory Last Values WBC 5.0 K/mm3 (4.5-11.0) 07/13/16 04:59 RBC 4.22 M/mm3 (3.65-5.03) 07/13/16 04:59 Hgb 8.9 gm/dl (10.1-14.3) L 07/13/16 04:59 Hct 30.1 % (30.3-42.9) L 07/13/16 04:59 MCV 71 fl (79-97) L 07/13/16 04:59 MCH 21 pg (28-32) L 07/13/16 04:59 MCHC 30 % (30-34) 07/13/16 04:59 RDW 29.2 % (13.2-15.2) H 07/13/16 04:59 Plt Count 143 K/mm3 (140-440) 07/13/16 04:59 Lymph % (Auto) 32.9 % (13.4-35.0) 07/07/16 07:49 [place] % (Auto) 8.6 % (0.0-7.3) H 07/07/16 07:49 Eos % (Auto) 4.9 % (0.0-4.3) H 07/07/16 07:49 Baso % (Auto) 0.9 % (0.0-1.8) 07/07/16 07:49 Lymph # 2.1 K/mm3 (1.2-5.4) 07/07/16 07:49 [place] # 0.5 K/mm3 (0.0-0.8) 07/07/16 07:49 Eos # 0.3 K/mm3 (0.0-0.4) 07/07/16 07:49 Baso # 0.1 K/mm3 (0.0-0.1) 07/07/16 07:49 Add Manual Diff Complete 07/13/16 04:59 Total Counted 100 07/13/16 04:59 Seg Neutrophils % 52.7 % (40.0-70.0) 07/07/16 07:49 Seg Neuts % (Manual) 46.0 % (40.0-70.0) 07/13/16 04:59 Band Neutrophils % 0 % 07/13/16 04:59 Lymphocytes % (Manual) 36.0 % (13.4-35.0) H 07/13/16 04:59 Reactive Lymphs % (Man) 0 % 07/13/16 04:59 Monocytes % (Manual) 12.0 % (0.0-7.3) H 07/13/16 04:59 Eosinophils % (Manual) 5.0 % (0.0-4.3) H 07/13/16 04:59 Basophils % (Manual) 1.0 % (0.0-1.8) 07/13/16 04:59 Metamyelocytes % 0 % 07/13/16 04:59 Myelocytes % 0 % 07/13/16 04:59 Promyelocytes % 0 % 07/13/16 04:59 Blast Cells % 0 % 07/13/16 04:59 Nucleated RBC % Not Reportable 07/13/16 04:59 Seg Neutrophils # 3.3 K/mm3 (1.8-7.7) 07/07/16 07:49 Seg Neutrophils # Man 2.3 K/mm3 (1.8-7.7) 07/13/16 04:59 Band Neutrophils # 0.0 K/mm3 07/13/16 04:59 Lymphocytes # (Manual) 1.8 K/mm3 (1.2-5.4) 07/13/16 04:59 Abs React Lymphs (Man) 0.0 K/mm3 07/13/16 04:59 Monocytes # (Manual) 0.6 K/mm3 (0.0-0.8) 07/13/16 04:59 Eosinophils # (Manual) 0.3 K/mm3 (0.0-0.4) 07/13/16 04:59 Basophils # (Manual) 0.1 K/mm3 (0.0-0.1) 07/13/16 04:59 Metamyelocytes # 0.0 K/mm3 07/13/16 04:59 Myelocytes # 0.0 K/mm3 07/13/16 04:59 Promyelocytes # 0.0 K/mm3 07/13/16 04:59 Blast Cells # 0.0 K/mm3 07/13/16 04:59 WBC Morphology Not Reportable 07/13/16 04:59 Hypersegmented Neuts Not Reportable 07/13/16 04:59 Hyposegmented Neuts Not Reportable 07/13/16 04:59 Hypogranular Neuts Not Reportable 07/13/16 04:59 Smudge Cells Not Reportable 07/13/16 04:59 Toxic Granulation Not Reportable 07/13/16 04:59 Toxic Vacuolation Not Reportable 07/13/16 04:59 Dohle Bodies Not Reportable 07/13/16 04:59 Pelger-Huet Anomaly Not Reportable 07/13/16 04:59 Chely Rods Not Reportable 07/13/16 04:59 Platelet Estimate Appears normal 07/13/16 04:59 Clumped Platelets Not Reportable 07/13/16 04:59 Plt Clumps, EDTA Not Reportable 07/13/16 04:59 Large Platelets Not Reportable 07/13/16 04:59 Giant Platelets Not Reportable 07/13/16 04:59 Platelet Satelliting Not Reportable 07/13/16 04:59 Plt Morphology Comment Not Reportable 07/13/16 04:59 RBC Morphology Not Reportable 07/13/16 04:59 Dimorphic RBCs Not Reportable 07/13/16 04:59 Polychromasia Not Reportable 07/13/16 04:59 Hypochromasia 2+ 07/13/16 04:59 Poikilocytosis Not Reportable 07/13/16 04:59 Anisocytosis 3+ 07/13/16 04:59 Microcytosis Not Reportable 07/13/16 04:59 Macrocytosis Not Reportable 07/13/16 04:59 Spherocytes Not Reportable 07/13/16 04:59 Pappenheimer Bodies Not Reportable 07/13/16 04:59 Sickle Cells Not Reportable 07/13/16 04:59 Target Cells Not Reportable 07/13/16 04:59 Tear Drop Cells Not Reportable 07/13/16 04:59 Ovalocytes Not Reportable 07/13/16 04:59 Helmet Cells Not Reportable 07/13/16 04:59 Beck-Spur Bodies Not Reportable 07/13/16 04:59 [place] Rings Not Reportable 07/13/16 04:59 Mary Cells Not Reportable 07/13/16 04:59 Bite Cells Not Reportable 07/13/16 04:59 Crenated Cell Not Reportable 07/13/16 04:59 Elliptocytes Not Reportable 07/13/16 04:59 Acanthocytes (Spur) Not Reportable 07/13/16 04:59 Rouleaux Not Reportable 07/13/16 04:59 Hemoglobin C Crystals Not Reportable 07/13/16 04:59 Schistocytes Not Reportable 07/13/16 04:59 Malaria parasites Not Reportable 07/13/16 04:59 Percent Retic 1.89 % (0.78-2.58) 07/06/16 13:22 Natan Bodies Not Reportable 07/13/16 04:59 Hem Pathologist Commnt No 07/13/16 04:59 Sodium 136 mmol/L (137-145) L 07/13/16 04:59 Potassium 4.6 mmol/L (3.6-5.0) 07/13/16 04:59 Chloride 101.0 mmol/L (98-107) 07/13/16 04:59 Carbon Dioxide 24 mmol/L (22-30) 07/13/16 04:59 Anion Gap 16 mmol/L 07/13/16 04:59 BUN 12 mg/dL (7-17) 07/13/16 04:59 Creatinine 0.6 mg/dL (0.7-1.2) L 07/13/16 04:59 Estimated GFR > 60 ml/min 07/13/16 04:59 BUN/Creatinine Ratio 20.00 % 07/13/16 04:59 Glucose 96 mg/dL (65-100) 07/13/16 04:59 Calcium 8.5 mg/dL (8.4-10.2) 07/13/16 04:59 Iron 22 ug/dL (37-170) L 07/06/16 13:22 TIBC 410 mcg/dL (250-450) 07/06/16 13:22 % Saturation 2.90 % 07/05/16 01:02 Transferrin 397 mg/dl (192-382) H 07/05/16 01:02 Ferritin 3.9 ng/mL (13.0-400.0) L 07/06/16 13:22 Total Bilirubin < 0.20 mg/dL (0.1-1.2) 07/13/16 04:59 AST 20 units/L (5-40) 07/13/16 04:59 ALT 17 units/L (7-56) 07/13/16 04:59 Alkaline Phosphatase 49 units/L (35-129) 07/13/16 04:59 Lactate Dehydrogenase 167 units/L (91-180) 07/06/16 13:22 Total Creatine Kinase 69 units/L (30-135) 07/05/16 04:20 Total Protein 5.9 g/dL (6.3-8.2) L 07/13/16 04:59 Albumin 3.5 g/dL (3.9-5) L 07/13/16 04:59 Albumin/Globulin Ratio 1.5 % 07/13/16 04:59 Vitamin B12 228.8 pg/mL (211-911) 07/06/16 13:22 Folate 5.42 ng/mL (7.3-26.0) L 07/06/16 13:22 Urine Color Yellow (Yellow) 07/05/16 03:07 Urine Turbidity Clear (Clear) 07/05/16 03:07 Urine pH 6.0 (5.0-7.0) 07/05/16 03:07 Ur Specific [place] 1.017 (1.003-1.030) 07/05/16 03:07 Urine Protein <15 mg/dl mg/dL (Negative) 07/05/16 03:07 Urine Glucose (UA) Neg mg/dL (Negative) 07/05/16 03:07 Urine Ketones Neg mg/dL (Negative) 07/05/16 03:07 Urine Blood Neg (Negative) 07/05/16 03:07 Urine Nitrite Neg (Negative) 07/05/16 03:07 Urine Bilirubin Neg (Negative) 07/05/16 03:07 Urine Urobilinogen 2.0 mg/dL (<2.0) 07/05/16 03:07 Ur Leukocyte Esterase Sm (Negative) 07/05/16 03:07 Urine WBC (Auto) 1.0 /HPF (0.0-6.0) 07/05/16 03:07 Urine RBC (Auto) 2.0 /HPF (0.0-6.0) 07/05/16 03:07 U Epithel Cells (Auto) 2.0 /HPF (0-13.0) 07/05/16 03:07 Urine Mucus Few /HPF 07/05/16 03:07 Urine HCG, Qual Negative (Negative) 07/05/16 03:07 Urine Opiates Screen Presumptive negative 07/05/16 03:07 Urine Methadone Screen Presumptive negative 07/05/16 03:07 Ur Barbiturates Screen Presumptive negative 07/05/16 03:07 Ur Phencyclidine Scrn Presumptive negative 07/05/16 03:07 Ur Amphetamines Screen Presumptive negative 07/05/16 03:07 U Benzodiazepines Scrn Presumptive negative 07/05/16 03:07 Urine Cocaine Screen Presumptive positive 07/05/16 03:07 U Marijuana (THC) Screen Presumptive negative 07/05/16 03:07 Drugs of Abuse Note Disclamer 07/05/16 03:07 Plasma/Serum Alcohol < 0.01 gm% (0-0.07) 07/05/16 01:02 Blood Type O POSITIVE 07/08/16 11:57 Antibody Screen TNR 07/08/16 11:57 VALENTÍN Antibody Screen Negative 07/08/16 11:57 Crossmatch See Detail 07/08/16 11:57
[2016-07-15] MEDS: ZOLOFT PO SCH (09:52)
[2016-07-15] MEDS: ELAVIL PO SCH (09:52)
[2016-07-15] MEDS: FOLVITE PO SCH (09:52)
[2016-07-15] MEDS: FEOSOL PO SCH (09:52)
--- NOTE | 2016-07-15 09:56 | Event Note ---
Date: 07/15/16 Patient was discharged several days ago but was awaiting her family to come and pick her up. Psychiatry has rescinded the 1013 and made recommendations on what medications patient should be continued on. Patient will follow up with outpatient psychiatry upon discharge. Patient is clinically stable and able to go home at this time. Patient has been instructed to follow-up with her primary care physician within one week
== END 2016-07-15 12:16 | disposition home or self-care (01) | DRG 885 ==
LOC: ED 00:28 → EEVIPCON 05:40 → 3A 05:40
PROVIDERS: ADMIT Internal Medicine; ATTEND Internal Medicine
PROC: 30233N1 Transfusion of Nonautologous Red Blood Cells into Peripheral Vein, Percutaneous Approach (ICD-10-PCS; principal; 2016-07-05)
DX: F31.9 Bipolar disorder, unspecified (principal); R45.851 Suicidal ideations; R10.9 Unspecified abdominal pain; F20.9 Schizophrenia, unspecified; I10 Essential (primary) hypertension; Z98.51 Tubal ligation status; F17.210 Nicotine dependence, cigarettes, uncomplicated; K80.20 Calculus of gallbladder without cholecystitis without obstruction; Z59.0 Homelessness; K82.8 Other specified diseases of gallbladder; F41.9 Anxiety disorder, unspecified; J45.909 Unspecified asthma, uncomplicated; F14.10 Cocaine abuse, uncomplicated; Z91.19 Patient's noncompliance with other medical treatment and regimen; F43.10 Post-traumatic stress disorder, unspecified; D50.9 Iron deficiency anemia, unspecified; N92.0 Excessive and frequent menstruation with regular cycle
CPT/HCPCS: 36415; 74176; 78226; 80048; 80053; 80307; 80320; 81001; 81025; 82271; 82550; 82607; 82728; 82747; 83550; 83615; 85007; 85025; 85027; 85045; 86850; 86900; 86901; 86920; 99406; A9537; G0480; J1200; J2805; J7040; P9016

== ENCOUNTER 2018-06-28 18:22 | Emergency (ER) | payer OTHER ==
--- NOTE | 2018-06-28 18:36 | Emergency Department Report ---
Chief Complaint: Abdominal Pain Stated Complaint: ABD PAIN Time Seen by Provider: 06/28/18 18:31 - HPI History of Present Illness: pt presents with suprapubic abd pain that began 3 days ago lower back pain +nausea one episode of emesis no diarrhea last normal BM yesterday no urinary sx states she had a utero-fibroid emobilization surgery in October 2018, had MRSA, and had a hysterectomy 10 days later PMHx of bowel perforation, and slipped disc in the lumbar +smoker +drinker +cocaine, marijuana MSE screening note: Focused history and physical exam performed. Due to findings the following was ordered: labs, UA ED Disposition for MSE Condition: Stable Instructions: Abdominal Pain (ED)
[2018-06-28 19:14] LABS: Basophils % (Auto) 0.8 % (0.0-1.8); Eosinophils # (Auto) 0.2 K/mm3 (0.0-0.4); Eosinophils % (Auto) 4.9 % (0.0-4.3); Hematocrit 38.5 % (30.3-42.9); Lymphocytes # (Auto) 1.6 K/mm3 (1.2-5.4); Lymphocytes % (Auto) 31.1 % (13.4-35.0); Mean Corpuscular HGB Conc 34 % (30-34); Mean Corpuscular Volume 88 fl (79-97); Monocytes # (Auto) 0.3 K/mm3 (0.0-0.8); Monocytes % (Auto) 6.1 % (0.0-7.3); Platelet Count 199 K/mm3 (140-440); Red Blood Count 4.36 M/mm3 (3.65-5.03); Red Cell Distribution Width 17.5 % (13.2-15.2)
[2018-06-28 19:20] LABS: Bilirubin,Urine NEG (Negative); Blood,Urine NEG (Negative); Color,Urine Yellow (Yellow); Mucus,Urine 3+ /HPF; Protein,Urine <15 mg/dL mg/dL (Negative); Urobilinogen,Urine < 2.0 mg/dL (<2.0)
[2018-06-28 19:37] LABS: Alanine Aminotransferase 11 units/L (7-56); Albumin 3.7 g/dL (3.9-5); BUN/Creatinine Ratio 15; Blood Urea Nitrogen 16 mg/dL (7-17); Hemolysis Index 7
[2018-06-28] MEDS ORDERED: ZOFRAN IV ONE (21:08)
[2018-06-28] MEDS ORDERED: SUBLIMAZE IV ONE ×2 (21:08→23:26)
--- NOTE | 2018-06-28 21:14 | Emergency Department Report ---
HPI - General Chief Complaint: Abdominal Pain Time Seen by Provider: 06/28/18 18:31 - HPI HPI: Room 19 The patient is a 38-year-old female presented with a chief complaint of abdominal pain. The patient states for the past 2 to 3 days she's had lower ab dominal pain described as aching and cramping in nature. Patient admits to one episode of nausea and vomiting. Patient denies diarrhea. The patient also states she has had clear vaginal discharge for the past 1-2 weeks. Patient denies dysuria or hematuria. Patient currently gets her pain score 7-8/10. The patient states she had complications from her uterine fibroid embolization requiring emergent surgerys from September through December 2017 Location: Abdomen Duration: 2-3 days Quality: Aching, cramping Severity: 7-8/10 Modifying factors: [see above] Context: [see above] Mode of transportation: [not driving] ED Past Medical Hx - Past Medical History Previous Medical History?: Yes Hx Hypertension: Yes Hx Psychiatric Treatment: Yes (Schizophrenia, Anxiety, Bipolar) Hx Asthma: Yes Additional medical history: aneima - Surgical History Past Surgical History?: Yes Additional Surgical History: tubal ligation. neck surgery. hernia repair. hysterectomy - Family History Family history: no significant - Social History Smoking Status: Current Every Day Smoker (1/7 per day) Substance Use Type: Alcohol (occasional), Cocaine, Marijuana - Medications Home Medications: Home Medications Medication Instructions Recorded Confirmed Last Taken Type ALPRAZolam [Xanax TAB] 1 tab PO HS 07/05/16 07/05/16 Unknown History Amitriptyline 50 mg PO BID 07/05/16 07/05/16 Unknown History Sertraline [Zoloft] 50 mg PO QDAY 07/05/16 07/05/16 Unknown History Trazodone HCl [traZODone] 100 mg PO QHS #30 tab 07/13/16 Unknown Rx risperiDONE [RisperDAL] 1 mg PO QHS #30 tablet 07/13/16 Unknown Rx traZODone [Desyrel] 100 mg PO QHS #30 tablet 07/13/16 Unknown Rx Amitriptyline [Elavil] 50 mg PO BID #60 tab 07/15/16 Unknown Rx Sertraline [Zoloft] 50 mg PO QDAY #30 tablet 07/15/16 Unknown Rx metroNIDAZOLE [Flagyl] 500 mg PO Q12HR #14 tab 06/28/18 Unknown Rx HYDROcodone/APAP 5-325 [[place] 1 - 2 each PO Q6HR PRN #10 tablet 06/29/18 Unknown Rx 5/325] ED Review of Systems ROS: Stated complaint: ABD PAIN Other details as noted in HPI Constitutional: fever (subjective) Eyes: denies: eye pain ENT: denies: throat pain Respiratory: no symptoms reported Cardiovascular: denies: chest pain Endocrine: no symptoms reported Gastrointestinal: abdominal pain, nausea, vomiting. denies: diarrhea Genitourinary: discharge. denies: dysuria, hematuria Musculoskeletal: back pain Neurological: denies: headache Physical Exam - Physical Exam Vital Signs: Vital Signs 06/28/18 18:32 Temperature 98.1 F Pulse Rate 71 Respiratory 18 Rate Blood Pressure 168/103 O2 Sat by Pulse 97 Oximetry Physical Exam: GENERAL: The patient is well-developed well-nourished female lying on stretcher not appearing to be in acute distress. [] HEENT: Normocephalic. Atraumatic. Extraocular motions are intact. Patient has moist mucous membranes. NECK: Supple. Trachea midline CHEST/LUNGS: Clear to auscultation. There is no respiratory distress noted. HEART/CARDIOVASCULAR: Regular. There is no tachycardia. There is no gallop rub or murmur. ABDOMEN: Abdomen is soft, with discomfort to palpation in the midepigastric and right lower quadrant. There is no rebound or guarding. Patient has normal bowel sounds. There is no abdominal distention. SKIN: There is no rash. There is no edema. There is no diaphoresis. NEURO: The patient is awake, alert, and oriented. The patient is cooperative. The patient has normal speech MUSCULOSKELETAL: There is no evidence of acute injury. ED Course Vital Signs 06/28/18 18:32 Temperature 98.1 F Pulse Rate 71 Respiratory 18 Rate Blood Pressure 168/103 O2 Sat by Pulse 97 Oximetry ED Medical Decision Making - Lab Data Result diagrams: 06/28/18 18:44 06/28/18 18:44 Laboratory Tests 06/28/18 06/28/18 06/28/18 18:44 18:44 18:48 WBC 5.0 RBC 4.36 Hgb 13.0 Hct 38.5 MCV 88 MCH 30 MCHC 34 RDW 17.5 H Plt Count 199 Lymph % (Auto) 31.1 [place] % (Auto) 6.1 Eos % (Auto) 4.9 H Baso % (Auto) 0.8 Lymph # 1.6 [place] # 0.3 Eos # 0.2 Baso # 0.0 Seg Neutrophils % 57.1 Seg Neutrophils # 2.8 Sodium 140 Potassium 4.2 Chloride 105.8 Carbon Dioxide 23 Anion Gap 15 BUN 16 Creatinine 1.1 Estimated GFR > 60 BUN/Creatinine Ratio 15 Glucose 96 Calcium 9.0 Total Bilirubin 0.20 AST 14 ALT 11 Alkaline Phosphatase 62 Total Protein 6.9 Albumin 3.7 L Albumin/Globulin Ratio 1.2 Lipase 20 Urine Color Yellow Urine Turbidity Slightly-cloudy Urine pH 5.0 Ur Specific [place] 1.027 Urine Protein <15 mg/dl Urine Glucose (UA) Neg Urine Ketones Neg Urine Blood Neg Urine Nitrite Neg Urine Bilirubin Neg Urine Urobilinogen < 2.0 Ur Leukocyte Esterase Neg Urine WBC (Auto) 3.0 Urine RBC (Auto) 4.0 U Epithel Cells (Auto) 3.0 Urine Mucus 3+ Wet prep- greater than 20% clue cells, no Trichomonas, no yeast - Radiology Data Radiology results: report reviewed (CT abdomen and pelvis), image reviewed (CT abdomen and pelvis) [place] [address] Cat Scan Report Signed Patient: SHELBY SANTIAGO MR# : [id number] : 1980 Acct:[id number] Age/Sex: 38 / F ADM Date: 06/28/18 Loc: ED Attending Dr: Ordering Physician: JHON CHAPA MD Date of Service: 06/28/18 Procedure(s): CT abdomen pelvis w con Accession Number(s): [id number] cc: JHON CHAPA MD PROCEDURE: CT ABDOMEN PELVIS W CON TECHNIQUE: Computerized axial tomography of the abdomen and pelvis was performed after the IV injection of iodinated nonionic contrast. HISTORY: lower abdominal pain COMPARISONS: None . FINDINGS: Visualized lower thorax: No significant abnormality. Liver: Normal size and attenuation. Spleen: Normal size and attenuation. Gallbladder and biliary system: Multiple stones identified within the gallbl adder lumen. No dilatation of the biliary ductal system. Pancreas: Normal. Adrenals: Normal. Kidneys: Normal. GI tract: No obstruction. No ileus or enteritis. The cecum, appendix and colon are normal. . Lymph nodes and mesentery: Normal. Vasculature: Normal.. Bladder: Normal. Reproductive organs: Normal. Peritoneum: No free fluid. Musculoskeletal structures: No significant abnormality. Other: None . IMPRESSION: There is no evidence of intestinal or urinary tract obstruction. No ileus or enteritis. The appendix is normal. Cholelithiasis. No dilatation of the biliary ductal system. . This document is electronically signed by Florinda Banks DO., Jun 29 2018 12:15:22 AM ET Transcribed By: [facility] Dictated By: FLORINDA BANKS MD Electronically Authenticated By: FLORINDA BANKS MD Signed Date/Time: 06/29/1816 DD/ TD/TT: 06/29/186 - Differential Diagnosis cystitis, appendicitis, bacterial vaginosis, Critical care attestation.: If time is entered above; I have spent that time in minutes in the direct care of this critically ill patient, excluding procedure time. ED Disposition Clinical Impression: Acute abdominal pain, Bacterial vaginosis Disposition: - TO HOME OR SELFCARE Is pt being admited?: No Does the pt Need Aspirin: No Condition: Stable Instructions: Bacterial Vaginosis (ED), Abdominal Pain (ED) Prescriptions: metroNIDAZOLE [Flagyl] 500 mg PO Q12HR #14 tab HYDROcodone/APAP 5-325 [[place] 5/325] 1 - 2 each PO Q6HR PRN #10 tablet PRN Reason: Pain Referrals: AMARILYS ERYES MD [Primary Care Provider] - 3-5 Days Forms: [facility] Treatment and Prevention Time of Disposition: 00:32
--- NOTE | 2018-06-29 00:17 | Cat Scan Report ---
PROCEDURE: CT ABDOMEN PELVIS W CON TECHNIQUE: Computerized axial tomography of the abdomen and pelvis was performed after the IV inject ion of iodinated nonionic contrast. HISTORY: lower abdominal pain COMPARISONS: None . FINDINGS: Visualized lower thorax: No significant abnormality. Liver: Normal size and attenuation. Spleen: Normal size and attenuation. Gallbladder and biliary system: Multiple stones identified within the gallbladder lumen. No dilatatio n of the biliary ductal system. Pancreas: Normal. Adrenals: Normal. Kidneys: Normal. GI tract: No obstruction. No ileus or enteritis. The cecum, appendix and colon are normal. . Lymph nodes and mesentery: Normal. Vasculature: Normal.. Bladder: Normal. Reproductive organs: Normal. Peritoneum: No free fluid. Musculoskeletal structures: No significant abnormality. Other: None . IMPRESSION: There is no evidence of intestinal or urinary tract obstruction. No ileus or enteritis. The appendix is normal. Cholelithiasis. No dilatation of the biliary ductal system. . This document is electronically signed by Florinda Banks DO., Jun 29 2018 12:15:22 AM ET
[2018-06-29 01:24] VITALS: BP 127/80
== END 2018-06-29 01:23 | disposition home or self-care (01) ==
LOC: ED 18:22
DX: N76.0 Acute vaginitis (principal); B96.89 Other specified bacterial agents as the cause of diseases classified elsewhere; R10.30 Lower abdominal pain, unspecified; R11.2 Nausea with vomiting, unspecified; I10 Essential (primary) hypertension; J45.909 Unspecified asthma, uncomplicated; F20.9 Schizophrenia, unspecified; F31.9 Bipolar disorder, unspecified; F17.210 Nicotine dependence, cigarettes, uncomplicated; F12.10 Cannabis abuse, uncomplicated; Z98.51 Tubal ligation status
CPT/HCPCS: 36415; 74177; 80053; 81001; 83690; 85025; 87210; 87591; 96374; 96375; 96376; 99285; J2405; J3010; Q9967

== ENCOUNTER 2018-10-02 21:32 | Emergency (ER) | payer SELFPAY ==
[2018-10-03] MEDS ORDERED: TYLENOL PO ONE (00:22)
--- NOTE | 2018-10-03 00:23 | Emergency Department Report ---
ED Fall HPI - General Chief Complaint: Fall Stated Complaint: FELL HIT HEAD ON [employer] Time Seen by Provider: 10/03/18 00:13 Source: patient, family, RN notes reviewed, old records reviewed Mode of arrival: Ambulatory Limitations: No Limitations - History of Present Illness Initial Comments: This is a 38-year-old female. This patient is not known to this provider previously. She does not have a local primary care doctor. Her past medical history includes schizophrenia, bipolar, iron deficiency anemia, hypertension, and she reports having had a hysterectomy last year. Patient presents to the ER after a mechanical fall. She states that she was in her usual state of health when she slipped and fell, and hit her head on the right side. She may have lost consciousness. She also has paraspinal and midline neck pain. She denies extremity weakness, numbness. She had nasal bleeding, now resolved. Headache is throbbing and aching, right-sided, increases with palpation and decreases with rest. No other injuries, no other complaints. The patient states that she is not . MD Complaint: fall -: Sudden Fall From: standing, other (patient states that she was walking, and slipped) When Fall Occurred: 1-3 hours [employer] Fall Witnessed: yes, by family Place Fall Occurred: home Loss of Consciousness: yes Prolonged Down Time?: no Symptoms Prior to Fall: none Location: head, neck Severity: moderate Quality: other Context: tripped/slipped Associated Symptoms: headache, neck pain - Related Data Home Medications Medication Instructions Recorded Confirmed Last Taken ALPRAZolam [Xanax TAB] 1 tab PO HS 07/05/16 07/05/16 Unknown Amitriptyline 50 mg PO BID 07/05/16 07/05/16 Unknown Sertraline [Zoloft] 50 mg PO QDAY 07/05/16 07/05/16 Unknown Previous Rx's Medication Instructions Recorded Last Taken Type Trazodone HCl [traZODone] 100 mg PO QHS #30 tab 07/13/16 Unknown Rx risperiDONE [RisperDAL] 1 mg PO QHS #30 tablet 07/13/16 Unknown Rx traZODone [Desyrel] 100 mg PO QHS #30 tablet 07/13/16 Unknown Rx Amitriptyline [Elavil] 50 mg PO BID #60 tab 07/15/16 Unknown Rx Sertraline [Zoloft] 50 mg PO QDAY #30 tablet 07/15/16 Unknown Rx metroNIDAZOLE [Flagyl] 500 mg PO Q12HR #14 tab 06/28/18 Unknown Rx HYDROcodone/APAP 5-325 [Isle 1 - 2 each PO Q6HR PRN #10 tablet 06/29/18 Unknown Rx 5/325] Acetaminophen [Non-Aspirin Extra 500 mg PO Q6HR PRN #30 tablet 10/03/18 Unknown Rx Strength] Ibuprofen [Motrin] 600 mg PO Q8H PRN #30 tablet 10/03/18 Unknown Rx Metoclopramide [Reglan] 10 mg PO QID PRN #30 tab 10/03/18 Unknown Rx Allergies Allergy/AdvReac Type Severity Reaction Status Date / Time No Known Allergies Allergy Verified 07/14/14 15:14 ED Review of Systems ROS: Stated complaint: FELL HIT HEAD ON [employer] Other details as noted in HPI Constitutional: denies: fever Eyes: denies: eye discharge ENT: epistaxis (now resolved) Respiratory: denies: cough Cardiovascular: denies: syncope Gastrointestinal: denies: vomiting Musculoskeletal: arthralgia, myalgia Skin: denies: lesions Neurological: headache Psychiatric: anxiety ED Past Medical Hx - Past Medical History Previous Medical History?: Yes Hx Hypertension: Yes Hx Congestive Heart Failure: No Hx Diabetes: No Hx Psychiatric Treatment: Yes (Schizophrenia, Anxiety, Bipolar) Hx Asthma: Yes Additional medical history: aneima - Surgical History Past Surgical History?: Yes Additional Surgical History: tubal ligation. neck surgery. hernia repair. hysterectomy - Social History Smoking Status: Current Every Day Smoker Substance Use Type: Marijuana - Medications Home Medications: Home Medications Medication Instructions Recorded Confirmed Last Taken Type ALPRAZolam [Xanax TAB] 1 tab PO HS 07/05/16 07/05/16 Unknown History Amitriptyline 50 mg PO BID 07/05/16 07/05/16 Unknown History Sertraline [Zoloft] 50 mg PO QDAY 07/05/16 07/05/16 Unknown History Trazodone HCl [traZODone] 100 mg PO QHS #30 tab 07/13/16 Unknown Rx risperiDONE [RisperDAL] 1 mg PO QHS #30 tablet 07/13/16 Unknown Rx traZODone [Desyrel] 100 mg PO QHS #30 tablet 07/13/16 Unknown Rx Amitriptyline [Elavil] 50 mg PO BID #60 tab 07/15/16 Unknown Rx Sertraline [Zoloft] 50 mg PO QDAY #30 tablet 07/15/16 Unknown Rx metroNIDAZOLE [Flagyl] 500 mg PO Q12HR #14 tab 06/28/18 Unknown Rx HYDROcodone/APAP 5-325 [Isle 1 - 2 each PO Q6HR PRN #10 tablet 06/29/18 Unknown Rx 5/325] Acetaminophen [Non-Aspirin Extra 500 mg PO Q6HR PRN #30 tablet 10/03/18 Unknown Rx Strength] Ibuprofen [Motrin] 600 mg PO Q8H PRN #30 tablet 10/03/18 Unknown Rx Metoclopramide [Reglan] 10 mg PO QID PRN #30 tab 10/03/18 Unknown Rx ED Physical Exam - General Limitations: No Limitations General appearance: alert, in no apparent distress - Head Head exam: Present: atraumatic, normocephalic - Eye Eye exam: Present: normal appearance, PERRL, EOMI, other (visual acuity intact to finger counting, color perception, reading at a close distance). Absent: nystagmus - ENT ENT exam: Present: normal exam, normal orophraynx, mucous membranes moist, TM's normal bilaterally, normal external ear exam, other (there is no nasal septal hematoma. There is no hemotympanum) - Neck Neck exam: Present: normal inspection, tenderness, full ROM - Respiratory Respiratory exam: Present: normal lung sounds bilaterally. Absent: respiratory distress - Cardiovascular Cardiovascular Exam: Present: regular rate, normal rhythm, normal heart sounds. Absent: bradycardia, tachycardia, irregular rhythm, systolic murmur, diastolic murmur, rubs, gallop - GI/Abdominal GI/Abdominal exam: Present: soft. Absent: distended, tenderness, guarding, sundar ound, rigid, pulsatile mass - Extremities Exam Extremities exam: Present: normal inspection, full ROM, other (2+ pulses noted in the bilateral upper, lower extremities. Compartments soft. No long bony tenderness. The pelvis is stable.). Absent: pedal edema, joint swelling, calf tenderness - Back Exam Back exam: Present: normal inspection, full ROM, paraspinal tenderness, other (2+ pulses noted in the bilateral upper, lower extremities. Compartments soft. No long bony tenderness. The pelvis is stable.). Absent: tenderness, CVA tenderness (R), CVA tenderness (L), muscle spasm - Neurological Exam Neurological exam: Present: alert, oriented X3, other (Extraocular movements intact. Tongue midline. No facial droop. Facial sensation intact to light touch in the V1, V2, V3 distribution bilaterally. 5 and 5 strength in 4 extremities.. Sensation is intact to light touch in 4 extremities.). Absent: motor sensory deficit - Psychiatric Psychiatric exam: Present: anxious - Skin Skin exam: Present: warm, dry, intact, normal color. Absent: rash ED Course Vital Signs 10/02/18 10/03/18 10/03/18 21:51 00:17 00:24 Temperature 98.8 F Pulse Rate 77 81 Respiratory 20 18 18 Rate Blood Pressure 164/106 Blood Pressure 171/100 [Right] O2 Sat by Pulse 99 100 100 Oximetry 10/03/18 00:48 Temperature Pulse Rate 81 Respiratory 18 Rate Blood Pressure Blood Pressure 143/76 [Right] O2 Sat by Pulse 100 Oximetry ED Medical Decision Making - Lab Data Vital Signs 10/02/18 10/03/18 10/03/18 21:51 00:17 00:24 Temperature 98.8 F Pulse Rate 77 81 Respiratory 20 18 18 Rate Blood Pressure 164/106 Blood Pressure 171/100 [Right] O2 Sat by Pulse 99 100 100 Oximetry 10/03/18 00:48 Temperature Pulse Rate 81 Respiratory 18 Rate Blood Pressure Blood Pressure 143/76 [Right] O2 Sat by Pulse 100 Oximetry - Radiology Data Radiology results: report reviewed, image reviewed Noncontrast CT scan of the brain is negative for acute disease. Noncontrast CT scan of the cervical spine is negative for acute disease - Medical Decision Making Differential diagnosis, including but not limited to: Sprain, strain, fracture, dislocation, concussion, intracranial injury, cervical spine injury Assessment and plan: 38-year-old female status post trip and fall, with headache, question loss of consciousness, and neck pain. She is clinically sober with a GCS of 15. Her primary and secondary survey are unremarkable except as noted in her physical exam. A noncontrast CT scan of the brain and cervical spine are negative for significant findings. Patient has not had any loss of consciousness while here in the emergency room. We discussed signs and symptoms of concussion, and expectant management. Patient's counseled to expect to be sore over the next few days. She is counseled to avoid heavy lifting, and to avoid contact sports. She can follow-up with an outpatient primary care doctor. Return precautions are reviewed. At the time of discharge, has full range of motion of the neck, actively without difficulty Critical care attestation.: If time is entered above; I have spent that time in minutes in the direct care of this critically ill patient, excluding procedure time. ED Disposition Clinical Impression: Fall, Neck pain Disposition: [id number] TO HOME OR SELFCARE Is pt being admited?: No Does the pt Need Aspirin: No Condition: Stable Additional Instructions: As we discussed, pain typically gets worse before it gets better after a mechanical fall. Rest, avoid heavy lifting, strenuous physical activities, and contact sports. Please follow-up with the primary care doctor within the next 7-10 days. Patient may have a mild concussion, symptoms of concussion include dizziness, lightheadedness, fogginess, forgetfulness, sensitivity to light, sensitivity to sound. Occasionally, concussions may last for a few weeks to a few months. Therefore, the patient should follow-up with the primary care doctor as recommended. The patient may take the pain medications as needed/directed, nausea medication as needed/directed, as should return to the ER right away with new, worsening or different symptoms, or symptoms not present on the initial emergency room evaluation. Referrals: AMRAILYS REYES MD [Primary Care Provider] - 3-5 Days [facility] [Provider Group] - 3-5 Days [facility] [Provider Group] - 3-5 Days
[2018-10-03 00:48] VITALS: BP 143/76
--- NOTE | 2018-10-03 01:43 | Cat Scan Report ---
CT head/brain wo con INDICATION / CLINICAL INFORMATION: MAIN: fall head injury concussion TECH NOTE: PATIENT FELL AND HIT HEAD. TECHNIQUE: All CT scans at this location are performed using CT dose reduction for ALARA by means of automated e xposure control. COMPARISON: None available. FINDINGS: The ventricular system is normal in size and configuration. No focal lesion or mass effect is seen. T here is no evidence of intracranial hemorrhage or major vessel occlusion. The calvarium is intact. There is minimal chronic mucosal thickening involving the right maxillary an trum. The other paranasal sinuses are clear. IMPRESSION: No acute abnormality. Signer Name: Homer Damon MD Signed: 10/03/2018 1:38 AM Workstation Name: [id number]
--- NOTE | 2018-10-03 01:49 | Cat Scan Report ---
CT cervical spine wo con INDICATION / CLINICAL INFORMATION: Fall with head trauma and neck pain. TECHNIQUE: All CT scans at this location are performed using CT dose reduction for ALARA by means of automated e xposure control. COMPARISON: None available. FINDINGS: The prevertebral soft tissues are normal. The vertebral body heights and disc spaces are well-maintai ernie. There is no evidence of fracture or subluxation. I see no evidence of a herniated disc or epidur al hematoma. The visualized upper lungs are clear. IMPRESSION: No acute abnormality. Signer Name: Homer Damon MD Signed: 10/03/2018 1:44 AM Workstation Name: [id number]
[2018-10-03] MEDS ORDERED: TORADOL IM ONE (01:58)
== END 2018-10-03 02:14 | disposition home or self-care (01) ==
LOC: ED 21:32
DX: M54.2 Cervicalgia (principal); R51 Headache; I10 Essential (primary) hypertension; F31.9 Bipolar disorder, unspecified; F20.9 Schizophrenia, unspecified; F41.9 Anxiety disorder, unspecified; J45.909 Unspecified asthma, uncomplicated; Z98.890 Other specified postprocedural states; Z98.51 Tubal ligation status; Z90.710 Acquired absence of both cervix and uterus; F17.200 Nicotine dependence, unspecified, uncomplicated; Z79.899 Other long term (current) drug therapy; W01.0XXA Fall on same level from slipping, tripping and stumbling without subsequent striking against object, initial encounter; Y93.89 Activity, other specified; Y92.098 Other place in other non-institutional residence as the place of occurrence of the external cause; Y99.8 Other external cause status
CPT/HCPCS: 70450; 72125; 96372; 99283; J1885

== ENCOUNTER 2020-08-29 11:43 | Emergency (ER) | payer OTHER, SELFPAY ==
--- NOTE | 2020-08-29 12:22 | Emergency Department Report ---
ED General Adult HPI - General Chief complaint: Psych Stated complaint: SI PUI?: No Time Seen by Provider: 08/29/20 11:49 Source: patient, RN notes reviewed, old records reviewed Mode of arrival: Stretcher Limitations: No Limitations - History of Present Illness Initial comments: During the entire history and physical examination, I am chaperoned by nurse Soraya Iglesias The patient is a 40-year-old female with a history of obesity. She presents to the ER today with a complaint of suicidality. She reports that around 10 days ago, she became homeless, and was kicked out of a hotel in [place]. The patient is not sure if she wants to overdose. The patient denies physical pain. The patient did not receive her COVID-19 vaccination. The patient denies headache, neck pain, chest pain, abdominal pain, shortness of breath. She thinks she might have bloody stool, but is not certain. She thinks she might have bloody urine, but she is not certain. However, her primary complaint today is suicidality and hopelessness. Her psychiatric symptoms are constant, they are painless, they do not radiate anywhere, and I do not have exacerbating relieving factors that she is aware of. She is not sure if she takes any medications at this time. She is not sure if she has a history of hypertension at this time. She reportedly has a distant history of hysterectomy. -: Gradual, days(s) Consistency: constant Improves with: none Worsens with: none - Related Data Home Medications Medication Instructions Recorded Confirmed Last Taken ALPRAZolam [Xanax TAB] 1 tab PO HS 07/05/16 07/05/16 Unknown Amitriptyline 50 mg PO BID 07/05/16 07/05/16 Unknown Sertraline [Zoloft] 50 mg PO QDAY 07/05/16 07/05/16 Unknown Previous Rx's Medication Instructions Recorded Last Taken Type Trazodone HCl [traZODone] 100 mg PO QHS #30 tab 07/13/16 Unknown Rx risperiDONE [RisperDAL] 1 mg PO QHS #30 tablet 07/13/16 Unknown Rx traZODone [Desyrel] 100 mg PO QHS #30 tablet 07/13/16 Unknown Rx Amitriptyline [Elavil] 50 mg PO BID #60 tab 07/15/16 Unknown Rx Sertraline [Zoloft] 50 mg PO QDAY #30 tablet 07/15/16 Unknown Rx metroNIDAZOLE [Flagyl] 500 mg PO Q12HR #14 tab 06/28/18 Unknown Rx HYDROcodone/APAP 5-325 [[place] 1 - 2 each PO Q6HR PRN #10 tablet 06/29/18 Unknown Rx 5/325] Acetaminophen [Non-Aspirin Extra 500 mg PO Q6HR PRN #30 tablet 10/03/18 Unknown Rx Strength] Ibuprofen [Motrin] 600 mg PO Q8H PRN #30 tablet 10/03/18 Unknown Rx Metoclopramide [Reglan] 10 mg PO QID PRN #30 tab 10/03/18 Unknown Rx Allergies Allergy/AdvReac Type Severity Reaction Status Date / Time No Known Allergies Allergy Verified 07/14/14 15:14 ED Review of Systems ROS: Stated complaint: SI Other details as noted in HPI Constitutional: denies: fever Eyes: denies: eye discharge ENT: denies: epistaxis Respiratory: denies: cough Cardiovascular: denies: chest pain Gastrointestinal: hematochezia. denies: abdominal pain Genitourinary: hematuria Musculoskeletal: denies: back pain Neurological: weakness Psychiatric: anxiety, suicidal thoughts ED Past Medical Hx - Past Medical History Hx Hypertension: Yes Hx Congestive Heart Failure: No Hx Diabetes: No Hx Psychiatric Treatment: Yes (Schizophrenia, Anxiety, Bipolar) Hx Asthma: Yes Additional medical history: aneima - Surgical History Additional Surgical History: tubal ligation. neck surgery. hernia repair. hysterectomy - Social History Smoking Status: Current Every Day Smoker Substance Use Type: Marijuana - Medications Home Medications: Home Medications Medication Instructions Recorded Confirmed Last Taken Type ALPRAZolam [Xanax TAB] 1 tab PO HS 07/05/16 07/05/16 Unknown History Amitriptyline 50 mg PO BID 07/05/16 07/05/16 Unknown History Sertraline [Zoloft] 50 mg PO QDAY 07/05/16 07/05/16 Unknown History Trazodone HCl [traZODone] 100 mg PO QHS #30 tab 07/13/16 Unknown Rx risperiDONE [RisperDAL] 1 mg PO QHS #30 tablet 07/13/16 Unknown Rx traZODone [Desyrel] 100 mg PO QHS #30 tablet 05/27/17 Unknown Rx Amitriptyline [Elavil] 50 mg PO BID #60 tab 07/15/16 Unknown Rx Sertraline [Zoloft] 50 mg PO QDAY #30 tablet 07/15/16 Unknown Rx metroNIDAZOLE [Flagyl] 500 mg PO Q12HR #14 tab 06/28/18 Unknown Rx HYDROcodone/APAP 5-325 [[place] 1 - 2 each PO Q6HR PRN #10 tablet 06/29/18 Unknown Rx 5/325] Acetaminophen [Non-Aspirin Extra 500 mg PO Q6HR PRN #30 tablet 10/03/18 Unknown Rx Strength] Ibuprofen [Motrin] 600 mg PO Q8H PRN #30 tablet 10/03/18 Unknown Rx Metoclopramide [Reglan] 10 mg PO QID PRN #30 tab 10/03/18 Unknown Rx ED Physical Exam - General Limitations: No Limitations General appearance: alert, in no apparent distress, obese - Head Head exam: Present: atraumatic, normocephalic - Eye Eye exam: Present: normal appearance, EOMI. Absent: nystagmus - ENT ENT exam: Present: normal exam, normal orophraynx, mucous membranes moist, normal external ear exam - Neck Neck exam: Present: normal inspection, full ROM. Absent: tenderness, meningismus - Respiratory Respiratory exam: Present: normal lung sounds bilaterally. Absent: respiratory distress, wheezes, rales, rhonchi, stridor, decreased breath sounds - Cardiovascular Cardiovascular Exam: Present: regular rate, normal rhythm, normal heart sounds. Absent: bradycardia, tachycardia, irregular rhythm, systolic murmur, diastolic murmur, rubs, gallop - GI/Abdominal GI/Abdominal exam: Present: soft. Absent: distended, tenderness, guarding, rebound, rigid, pulsatile mass - Rectal Rectal exam: Present: normal inspection, normal rectal tone, heme (-) stool. Absent: heme (+) stool, black stool, bloody stool, fecal impaction, hemorrhoids - Extremities Exam Extremities exam: Present: normal inspection, full ROM, other (2+ pulses noted in the bilateral upper and lower extremities. There is no palpable cord. negative Homans sign. Muscular compartments are soft. The pelvis is stable.). Absent: pedal edema, calf tenderness - Back Exam Back exam: Present: normal inspection. Absent: tenderness, CVA tenderness (R), CVA tenderness (L), paraspinal tenderness, vertebral tenderness - Neurological Exam Neurological exam: Present: alert, oriented X3, normal gait, other (No facial droop. Tongue midline. Extraocular movements intact bilaterally. Facial sensation intact to light touch in V1, V2, V3 distribution bilaterally. 5 and a 5 strength in 4 extremities. Sensation intact to light touch in 4 extremities.). Absent: motor sensory deficit - Psychiatric Psychiatric exam: Present: anxious, suicidal ideation - Skin Skin exam: Present: warm, dry, intact ED Course Vital Signs 08/29/20 08/29/20 08/29/20 12:33 13:10 20:07 Temperature 98.0 F 98.4 F 98.5 F Pulse Rate 97 H 84 Respiratory 20 18 Rate Blood Pressure Blood Pressure 214/141 158/107 [Left] O2 Sat by Pulse 98 98 Oximetry 08/29/20 08/30/20 08/30/20 22:03 01:46 08:07 Temperature 97.8 F 97.9 F Pulse Rate 86 92 H 73 Respiratory 18 18 16 Rate Blood Pressure Blood Pressure 151/86 191/110 160/108 [Left] O2 Sat by Pulse 95 98 96 Oximetry 08/30/20 09:45 Temperature Pulse Rate Respiratory Rate Blood Pressure 163/108 Blood Pressure [Left] O2 Sat by Pulse Oximetry - Reevaluation(s) Reevaluation #1: 08/29/20 15:45 Differential diagnosis, including but not limited to: Suicidality, medical clearance for psychiatric placement, incidental elevated blood pressure, hypomagnesemia assessment and plan: 40-year-old female, who was afebrile, with reassuring vital signs with the exception of hypertension which appears to be chronic. obtain mental health evaluation.l Place patient on hold status in order 1013. Ordered Covid swab, as needed medications, start Norvasc, order magnesium oxide supplementation, awaiting urinalysis. Hemoglobin, hematocrit appropriate at this time. No evidence of GI bleeding on rectal examination. Care will be transferred to the oncoming ER physician to follow-up on urinalysis, and valproic acid. The patient's elevated blood pressure does not preclude psychiatric disposition at this time. If this patient was not on the 1013 or psychiatric hold, she will be discharged with oral medications, and instructions to participate in diet and lifestyle modifications for her elevated blood pressure. Elevated CK will decrease with rest, and oral hydration. this patient has normal renal function. ck will decrease on its own with rest and oral hydration. does not require repeat evaluation at this time. 08/29/20 15:48 08/30/20 10:14 Urinalysis, valproic acid level unremarkable. Blood pressure is improved. At this point time, patient does not appear to have an immediate medical contraindication at this time which would preclude psychiatric disposition, consultation and placement. Psychiatric recommendations are reviewed and appreciated. ED Medical Decision Making - Lab Data Result diagrams: 08/29/20 14:20 08/29/20 14:20 Vital Signs 08/29/20 08/29/20 12:33 13:10 Temperature 98.0 F 98.4 F Pulse Rate 97 H Respiratory 20 Rate Blood Pressure 214/141 [Left] O2 Sat by Pulse 98 Oximetry Lab Results 08/29/20 08/29/20 08/29/20 Range/Units 14:20 14:20 14:20 WBC 5.8 (4.5-11.0) K/mm3 RBC 4.12 (3.65-5.03) M/mm3 Hgb 13.2 (10.1-14.3) gm/dl Hct 39.5 (30.3-42.9) % MCV 96 (79-97) fl MCH 32 (28-32) pg MCHC 33 (30-34) % RDW 14.4 (13.2-15.2) % Plt Count 182 (140-440) K/mm3 Lymph % (Auto) 24.9 (13.4-35.0) % [place] % (Auto) 7.2 (0.0-7.3) % Eos % (Auto) 6.3 H (0.0-4.3) % Baso % (Auto) 0.6 (0.0-1.8) % Lymph # (Auto) 1.4 (1.2-5.4) K/mm3 [place] # (Auto) 0.4 (0.0-0.8) K/mm3 Eos # (Auto) 0.4 (0.0-0.4) K/mm3 Baso # (Auto) 0.0 (0.0-0.1) K/mm3 Total Counted Cancelled Seg Neutrophils % 61.0 (40.0-70.0) % Seg Neuts % (Manual) Cancelled Band Neutrophils % Cancelled Lymphocytes % (Manual) Cancelled Reactive Lymphs % (Man) Cancelled Monocytes % (Manual) Cancelled Eosinophils % (Manual) Cancelled Basophils % (Manual) Cancelled Metamyelocytes % Cancelled Myelocytes % Cancelled Promyelocytes % Cancelled Blast Cells % Cancelled Nucleated RBC % Cancelled Seg Neutrophils # 3.4 (1.8-7.7) K/mm3 Seg Neutrophils # Man Cancelled Band Neutrophils # Cancelled Lymphocytes # (Manual) Cancelled Abs React Lymphs (Man) Cancelled Monocytes # (Manual) Cancelled Eosinophils # (Manual) Cancelled Basophils # (Manual) Cancelled Metamyelocytes # Cancelled Myelocytes # Cancelled Promyelocytes # Cancelled Blast Cells # Cancelled WBC Morphology Cancelled Hypersegmented Neuts Cancelled Hyposegmented Neuts Cancelled Hypogranular Neuts Cancelled Hypersegmented Polys Cancelled Smudge Cells Cancelled Toxic Granulation Cancelled Toxic Vacuolation Cancelled Dohle Bodies Cancelled Pelger-Huet Anomaly Cancelled Chely Rods Cancelled Platelet Estimate Cancelled Clumped Platelets Cancelled Plt Clumps, EDTA Cancelled Large Platelets Cancelled Giant Platelets Cancelled Platelet Satelliting Cancelled Plt Morphology Comment Cancelled RBC Morphology Cancelled Dimorphic RBCs Cancelled Polychromasia Cancelled Hypochromasia Cancelled Poikilocytosis Cancelled Basophilic Stippling Cancelled Anisocytosis Cancelled Microcytosis Cancelled Macrocytosis Cancelled Spherocytes Cancelled Pappenheimer Bodies Cancelled Sickle Cells Cancelled Target Cells Cancelled Tear Drop Cells Cancelled Ovalocytes Cancelled Stomatocytes Cancelled Helmet Cells Cancelled Beck-Hepburn Bodies Cancelled Gaastra Rings Cancelled [place]avillo Cells Cancelled Bite Cells Cancelled Crenated Cell Cancelled Elliptocytes Cancelled Acanthocytes (Spur) Cancelled Rouleaux Cancelled Hemoglobin C Crystals Cancelled Schistocytes Cancelled Malaria parasites Cancelled Natan Bodies Cancelled Hem Pathologist Commnt Cancelled Sodium 139 (137-145) mmol/L Potassium 3.9 (3.6-5.0) mmol/L Chloride 104.5 (98-107) mmol/L Carbon Dioxide 24 (22-30) mmol/L Anion Gap 14 mmol/L BUN 7 (7-17) mg/dL Creatinine 0.6 (0.6-1.2) mg/dL Estimated GFR > 60 ml/min BUN/Creatinine Ratio 12 % Glucose 86 (65-100) mg/dL Calcium 8.8 (8.4-10.2) mg/dL Magnesium (1.7-2.3) mg/dL Total Creatine Kinase (30-135) units/L TSH 1.020 (0.270-4.200) mlU/mL Salicylates (2.8-20.0) mg/dL Acetaminophen (10.0-30.0) ug/mL Phenytoin (10.0-20.0) ug/mL [place] (0.0-1.2) mmol/L Plasma/Serum Alcohol (0-0.07) % Blood Type Antibody Screen 08/29/20 08/29/20 08/29/20 Range/Units 14:20 14:20 14:20 WBC (4.5-11.0) K/mm3 RBC (3.65-5.03) M/mm3 Hgb (10.1-14.3) gm/dl Hct (30.3-42.9) % MCV (79-97) fl MCH (28-32) pg MCHC (30-34) % RDW (13.2-15.2) % Plt Count (140-440) K/mm3 Lymph % (Auto) (13.4-35.0) % [place] % (Auto) (0.0-7.3) % Eos % (Auto) (0.0-4.3) % Baso % (Auto) (0.0-1.8) % Lymph # (Auto) (1.2-5.4) K/mm3 [place] # (Auto) (0.0-0.8) K/mm3 Eos # (Auto) (0.0-0.4) K/mm3 Baso # (Auto) (0.0-0.1) K/mm3 Total Counted Seg Neutrophils % (40.0-70.0) % Seg Neuts % (Manual) Band Neutrophils % Lymphocytes % (Manual) Reactive Lymphs % (Man) Monocytes % (Manual) Eosinophils % (Manual) Basophils % (Manual) Metamyelocytes % Myelocytes % Promyelocytes % Blast Cells % Nucleated RBC % Seg Neutrophils # (1.8-7.7) K/mm3 Seg Neutrophils # Man Band Neutrophils # Lymphocytes # (Manual) Abs React Lymphs (Man) Monocytes # (Manual) Eosinophils # (Manual) Basophils # (Manual) Metamyelocytes # Myelocytes # Promyelocytes # Blast Cells # WBC Morphology Hypersegmented Neuts Hyposegmented Neuts Hypogranular Neuts Hypersegmented Polys Smudge Cells Toxic Granulation Toxic Vacuolation Dohle Bodies Pelger-Huet Anomaly Chely Rods Platelet Estimate Clumped Platelets Plt Clumps, EDTA Large Platelets Giant Platelets Platelet Satelliting Plt Morphology Comment RBC Morphology Dimorphic RBCs Polychromasia Hypochromasia Poikilocytosis Basophilic Stippling Anisocytosis Microcytosis Macrocytosis Spherocytes Pappenheimer Bodies Sickle Cells Target Cells Tear Drop Cells Ovalocytes Stomatocytes Helmet Cells Beck-Hepburn Bodies Gaastra Rings Mary Cells Bite Cells Crenated Cell Elliptocytes Acanthocytes (Spur) Rouleaux Hemoglobin C Crystals Schistocytes Malaria parasites Natan Bodies Hem Pathologist Commnt Sodium (137-145) mmol/L Potassium (3.6-5.0) mmol/L Chloride (98-107) mmol/L Carbon Dioxide (22-30) mmol/L Anion Gap mmol/L BUN (7-17) mg/dL Creatinine (0.6-1.2) mg/dL Estimated GFR ml/min BUN/Creatinine Ratio % Glucose (65-100) mg/dL Calcium (8.4-10.2) mg/dL Magnesium 1.60 L (1.7-2.3) mg/dL Total Creatine Kinase 360 H (30-135) units/L TSH (0.270-4.200) mlU/mL Salicylates < 0.3 L (2.8-20.0) mg/dL Acetaminophen 5.0 L (10.0-30.0) ug/mL Phenytoin 0.8 L (10.0-20.0) ug/mL [place] 0.1 (0.0-1.2) mmol/L Plasma/Serum Alcohol (0-0.07) % Blood Type Antibody Screen 08/29/20 08/29/20 Range/Units 14:20 14:20 WBC (4.5-11.0) K/mm3 RBC (3.65-5.03) M/mm3 Hgb (10.1-14.3) gm/dl Hct (30.3-42.9) % MCV (79-97) fl MCH (28-32) pg MCHC (30-34) % RDW (13.2-15.2) % Plt Count (140-440) K/mm3 Lymph % (Auto) (13.4-35.0) % [place] % (Auto) (0.0-7.3) % Eos % (Auto) (0.0-4.3) % Baso % (Auto) (0.0-1.8) % Lymph # (Auto) (1.2-5.4) K/mm3 [place] # (Auto) (0.0-0.8) K/mm3 Eos # (Auto) (0.0-0.4) K/mm3 Baso # (Auto) (0.0-0.1) K/mm3 Total Counted Seg Neutrophils % (40.0-70.0) % Seg Neuts % (Manual) Band Neutrophils % Lymphocytes % (Manual) Reactive Lymphs % (Man) Monocytes % (Manual) Eosinophils % (Manual) Basophils % (Manual) Metamyelocytes % Myelocytes % Promyelocytes % Blast Cells % Nucleated RBC % Seg Neutrophils # (1.8-7.7) K/mm3 Seg Neutrophils # Man Band Neutrophils # Lymphocytes # (Manual) Abs React Lymphs (Man) Monocytes # (Manual) Eosinophils # (Manual) Basophils # (Manual) Metamyelocytes # Myelocytes # Promyelocytes # Blast Cells # WBC Morphology Hypersegmented Neuts Hyposegmented Neuts Hypogranular Neuts Hypersegmented Polys Smudge Cells Toxic Granulation Toxic Vacuolation Dohle Bodies Pelger-Huet Anomaly Chely Rods Platelet Estimate Clumped Platelets Plt Clumps, EDTA Large Platelets Giant Platelets Platelet Satelliting Plt Morphology Comment RBC Morphology Dimorphic RBCs Polychromasia Hypochromasia Poikilocytosis Basophilic Stippling Anisocytosis Microcytosis Macrocytosis Spherocytes Pappenheimer Bodies Sickle Cells Target Cells Tear Drop Cells Ovalocytes Stomatocytes Helmet Cells Beck-Hepburn Bodies Gaastra Rings [place] Cells Bite Cells Crenated Cell Elliptocytes Acanthocytes (Spur) Rouleaux Hemoglobin C Crystals Schistocytes Malaria parasites Natan Bodies Hem Pathologist Commnt Sodium (137-145) mmol/L Potassium (3.6-5.0) mmol/L Chloride (98-107) mmol/L Carbon Dioxide (22-30) mmol/L Anion Gap mmol/L BUN (7-17) mg/dL Creatinine (0.6-1.2) mg/dL Estimated GFR ml/min BUN/Creatinine Ratio % Glucose (65-100) mg/dL Calcium (8.4-10.2) mg/dL Magnesium (1.7-2.3) mg/dL Total Creatine Kinase (30-135) units/L TSH (0.270-4.200) mlU/mL Salicylates (2.8-20.0) mg/dL Acetaminophen (10.0-30.0) ug/mL Phenytoin (10.0-20.0) ug/mL [place] (0.0-1.2) mmol/L Plasma/Serum Alcohol < 0.01 (0-0.07) % Blood Type O POSITIVE Antibody Screen Negative Critical care attestation.: If time is entered above; I have spent that time in minutes in the direct care of this critically ill patient, excluding procedure time. ED Disposition Clinical Impression: Schizophrenia, Suicidal ideation, Bipolar disorder, Elevated blood pressure reading, Medical clearance for psychiatric admission Disposition: [id number]/[id number] PSY HOSP/PSY UNIT Is pt being admited?: No Does the pt Need Aspirin: No Condition: Good Referrals: PRIMARY CARE, [Primary Care Provider] - 3-5 Days
[2020-08-29] MEDS ORDERED: ALPRAZolam 1 MG TAB PO ONE (13:00)
[2020-08-29 14:51] LABS: Hematocrit 39.5 % (30.3-42.9); Hemoglobin 13.2 gm/dl (10.1-14.3); Mean Corpuscular HGB Conc 33 % (30-34); Mean Corpuscular Volume 96 fl (79-97); Platelet Count 182 K/mm3 (140-440); Red Blood Count 4.12 M/mm3 (3.65-5.03); Red Cell Distribution Width 14.4 % (13.2-15.2)
[2020-08-29 15:02] LABS: Blood Urea Nitrogen 7 mg/dL (7-17); Calcium 8.8 mg/dL (8.4-10.2); Hemolysis Index 1
[2020-08-29 15:03] LABS: BUN/Creatinine Ratio 12
[2020-08-29] MEDS ORDERED: HALOPERIDOL LACTATE 5 MG/1 ML INJ IM PRN (15:09)
[2020-08-29] MEDS ORDERED: ACETAMINOPHEN 325 MG TAB PO PRN (15:09)
[2020-08-29 15:25] LABS: Basophils % (Auto) 0.6 % (0.0-1.8); Eosinophils # (Auto) 0.4 K/mm3 (0.0-0.4); Eosinophils % (Auto) 6.3 % (0.0-4.3); Lymphocytes # (Auto) 1.4 K/mm3 (1.2-5.4); Lymphocytes % (Auto) 24.9 % (13.4-35.0); Monocytes # (Auto) 0.4 K/mm3 (0.0-0.8); Monocytes % (Auto) 7.2 % (0.0-7.3)
[2020-08-29] MEDS ORDERED: MAGNESIUM OXIDE 400 MG TAB PO STA (15:41)
[2020-08-29] MEDS: amLODIPine 5 MG TAB PO SCH (16:20)
[2020-08-29 20:07] LABS: Bilirubin,Urine NEG (Negative); Blood,Urine NEG (Negative); Color,Urine Yellow (Yellow); Mucus,Urine 1+ /HPF; Protein,Urine <15 mg/dL mg/dL (Negative); Urobilinogen,Urine < 2.0 mg/dL (<2.0)
[2020-08-29 20:09] LABS: Amphetamine Screen,Urine PRESUMPTIVE POSITIVE; Benzodiazepines Screen,Urine PRESUMPTIVE POSITIVE; Cannabinoid Screen,Urine PRESUMPTIVE POSITIVE; Cocaine Screen,Urine PRESUMPTIVE POSITIVE; Methadone Screen,Urine PRESUMPTIVE NEGATIVE; Opiate Screen,Urine PRESUMPTIVE NEGATIVE
[2020-08-30] MEDS: diphenhydrAMINE 25 MG CAP PO PRN ×2 (01:41→18:30)
[2020-08-30] MEDS: amLODIPine 5 MG TAB PO SCH (09:45)
[2020-08-30] MEDS: MAGNESIUM OXIDE 400 MG TAB PO SCH (09:45)
--- NOTE | 2020-08-30 10:45 | Event Note ---
Date: 08/30/20 40-year-old female with history of schizophrenia who presented with suicidal ideation. She was seen by my colleague and was medically cleared for psychiatric evaluation and placement. Her vital signs have remained stable. There have been no acute events overnight. She was seen by the psychiatry/mental health team who recommended further inpatient psychiatric treatment. She is currently awaiting inpatient psychiatric facility placement. Attempted to reconcile home medications but patient does not know the medications of the doses and has not been taking them.
--- NOTE | 2020-08-30 13:06 | Consultation ---
History of Present Illness - Reason for Consult Consult date: 08/30/20 Reason for consult: suicidal ideation - History of Present Psychiatric Illness Per ED Note: The patient is a 40-year-old female with a history of obesity. She presents to the ER today with a complaint of suicidality. She reports that around 10 days ago, she became homeless, and was kicked out of a hotel in [place].The patient is not sure if she wants to overdose. The patient denies physical pain. The patient did not receive her COVID-19 vaccination. The marito ent denies headache, neck pain, chest pain, abdominal pain, shortness of breath. She thinks she might have bloody stool, but is not certain. She thinks she might have bloody urine, but she is not certain. However, her primary complaint today is suicidality and hopelessness. Her psychiatric symptoms are constant, they are painless, they do not radiate anywhere, and I do not have exacerbating relieving factors that she is aware of. She is not sure if she takes any medications at this time. She is not sure if she has a history of hypertension at this time. She reportedly has a distant history of hysterectomy. Sherri Velasco is a 40 year old female with a history of Schizophrenia, Bipolar and PTSD. In my interview with the patient, she endorses suicidal ideation without a plan. The patient reports that she is homeless and have being having suicidal thoughts for the past 10 days. The patient reports having Visual and auditory hallucinations with command " voices telling me to kill myself; I have three personality." The patient reports that she is noncompliant with psycho tropic medications. She denies homicidal ideation. PAST PSYCHIATRIC HISTORY: Diagnoses: Schizophrenia, Bipolar, PTSD Suicide attempts or Self-harm behavior: Denies Prior psychiatric hospitalizations: unknown Substance Abuse history: Cocaine, ICE, [place] Previous psychiatric medications tried: Zoloft, Xanax, Klonopin, Trazodone, Seroquel, Amitriptyline Outpatient treatment: PAST MEDICAL HISTORY: Unnown Family Psychiatric History: None reported or documented SOCIAL HISTORY Marital Status: Single Living Arrangements: Lives with boyfriend Employment Status: unemployed Access to guns/weapons: none reported Education: 12th grade History of Abuse: none reported Legal History:None reported REVIEW OF SYSTEMS Constitutional: Negative for weight loss ENT: Negative for stridor Respiratory: Negative for cough or hemoptysis All other systems reviewed and are negative MENTAL STATUS EXAMINATION General Appearance: Dressed appropriately, Behavior: cooperative Mood: Irritable Affect and affective range: congruent with mood Thought Process: Circumstantial Speech: Normal Thought content:Suicidal Suicidal Ideation: SI Homicidal Ideation: Denies Hallucinations: Denies Delusions: Denies Insight and Judgment: Limited insight and judgment Memory: impaired Attention: Normal Orientation: Alert, oriented Assessment Diagnosis: (1)Bipolar, Unspecified-F31.9 Treatment Plan Continue 1013 Start Depakote 500mg po BID Start Trazodone 50mg po QHS PSYCHOTHERAPY: Supportive psychotherapy provided MEDICAL: Per primary team DELIRIUM PRECAUTIONS: Please re-orient patient frequently, keep lights on during the day, and minimize benzodiazepines and opiates as these medications could worsen patient's confusion. GEOLOGICAL SCOUT: Per medical team DISPOSITION: Recommend acute psychiatric inpatient treatment Will follow. Please contact with any questions and/or concerns. Thank you for the consult. Case staffed with Dr. Pink Medications and Allergies Allergies Allergy/AdvReac Type Severity Reaction Status Date / Time No Known Allergies Allergy Verified 07/14/14 15:14 Home Medications Medication Instructions Recorded Confirmed Last Taken Type ALPRAZolam [Xanax TAB] 1 tab PO HS 07/05/16 07/05/16 Unknown History Amitriptyline 50 mg PO BID 07/05/16 07/05/16 Unknown History Sertraline [Zoloft] 50 mg PO QDAY 07/05/16 07/05/16 Unknown History Trazodone HCl [traZODone] 100 mg PO QHS #30 tab 07/13/16 Unknown Rx risperiDONE [RisperDAL] 1 mg PO QHS #30 tablet 07/13/16 Unknown Rx traZODone [Desyrel] 100 mg PO QHS #30 tablet 07/13/16 Unknown Rx Amitriptyline [Elavil] 50 mg PO BID #60 tab 07/15/16 Unknown Rx Sertraline [Zoloft] 50 mg PO QDAY #30 tablet 07/15/16 Unknown Rx metroNIDAZOLE [Flagyl] 500 mg PO Q12HR #14 tab 06/28/18 Unknown Rx HYDROcodone/APAP 5-325 [[place] 1 - 2 each PO Q6HR PRN #10 tablet 06/29/18 Unknown Rx 5/325] Acetaminophen [Non-Aspirin Extra 500 mg PO Q6HR PRN #30 tablet 10/03/18 Unknown Rx Strength] Ibuprofen [Motrin] 600 mg PO Q8H PRN #30 tablet 10/03/18 Unknown Rx Metoclopramide [Reglan] 10 mg PO QID PRN #30 tab 10/03/18 Unknown Rx Active Meds: Active Medications Acetaminophen (Acetaminophen 325 Mg Tab) 650 mg PO Q6HR PRN PRN Reason: PAIN Amlodipine Besylate (Amlodipine 5 Mg Tab) 5 mg PO QDAY [facility] Last Admin: 08/30/20 09:45 Dose: 5 mg Documented by: Diphenhydramine HCl (Diphenhydramine 25 Mg Cap) 50 mg PO QHS PRN PRN Reason: Insomnia Last Admin: 08/30/20 01:41 Dose: 50 mg Documented by: Haloperidol Lactate (Haloperidol Lactate 5 Mg/1 Ml Inj) 5 mg IM Q6HR PRN PRN Reason: Agitation Lorazepam (Lorazepam 2 Mg/Ml Vial) 2 mg IM Q4HR PRN PRN Reason: Agitation Magnesium Oxide (Magnesium Oxide 400 Mg Tab) 400 mg PO QDAY [facility] Last Admin: 08/30/20 09:45 Dose: 400 mg Documented by: Mental Status Exam - Vital signs Last Vital Signs Temp 97.9 F 08/30/20 08:07 Pulse 73 08/30/20 08:07 Resp 16 08/30/20 08:07 BP 163/108 08/30/20 09:45 Pulse Ox 96 08/30/20 08:07 Results Result Diagrams: 08/29/20 14:20 08/29/20 14:20 Abnormal lab results 08/29/20 08/29/20 08/29/20 Range/Units 14:20 14:20 14:20 Eos % (Auto) 6.3 H (0.0-4.3) % Magnesium (1.7-2.3) mg/dL Total Creatine Kinase (30-135) units/L Salicylates < 0.3 L (2.8-20.0) mg/dL Acetaminophen 5.0 L (10.0-30.0) ug/mL Phenytoin 0.8 L (10.0-20.0) ug/mL Valproic Acid < 2.8 L (50-100) ug/mL 07/13/21 Range/Units 14:20 Eos % (Auto) (0.0-4.3) % Magnesium 1.60 L (1.7-2.3) mg/dL Total Creatine Kinase 360 H (30-135) units/L Salicylates (2.8-20.0) mg/dL Acetaminophen (10.0-30.0) ug/mL Phenytoin (10.0-20.0) ug/mL Valproic Acid (50-100) ug/mL All other labs normal.
[2020-08-30] MEDS: LORazepam 2 MG/ML VIAL IM PRN (17:20)
[2020-08-30] MEDS ORDERED: traZODone 50 MG TAB PO SCH (22:00)
[2020-08-30] MEDS: DIVALPROEX DR 500 MG TAB PO SCH (22:25)
[2020-08-31] MEDS: LORazepam 2 MG/ML VIAL IM PRN (08:19)
--- NOTE | 2020-08-31 11:22 | Progress Note ---
Subjective - Reason for Consult Consult date: 08/31/20 Reason for consult: Suicidal ideation - Chief Complaint Chief complaint: The patient was seen this morning resting quietly. The patient continues to endorse SI. She reports sleep and appetite as good. She denies any current hallucinations. REVIEW OF SYSTEMS Constitutional: Negative for weight loss ENT: Negative for stridor Respiratory: Negative for cough or hemoptysis All other systems reviewed and are negative MENTAL STATUS EXAMINATION General Appearance: Dressed appropriately, Behavior: cooperative Mood: " depressed" Affect and affective range: congruent with mood Thought Process: Circumstantial Speech: Normal Thought content:Suicidal Suicidal Ideation: SI Homicidal Ideation: Denies Hallucinations: Denies Delusions: Denies Insight and Judgment: Limited insight and judgment Memory: impaired Attention: Normal Orientation: Alert, oriented Assessment Diagnosis: (1)Bipolar, Unspecified-F31.9 Treatment Plan Continue 1013 Start Depakote 500mg po BID Start Trazodone 50mg po QHS PSYCHOTHERAPY: Supportive psychotherapy provided MEDICAL: Per primary team DELIRIUM PRECAUTIONS: Please re-orient patient frequently, keep lights on during the day, and minimize benzodiazepines and opiates as these medications could worsen patient's confusion. 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 Please contact with any questions and/or concerns. Thank you for the consult. Case staffed with Dr. Pink Mental Status Exam - Vital signs Last Vital Signs Temp 98.2 F 08/30/20 20:44 Pulse 83 08/30/20 20:44 Resp 18 08/30/20 20:44 BP 155/103 08/30/20 20:44 Pulse Ox 100 08/30/20 20:44
[2020-08-31 11:25] VITALS: BP 146/98
[2020-08-31] MEDS: MAGNESIUM OXIDE 400 MG TAB PO SCH (12:03)
[2020-08-31] MEDS: DIVALPROEX DR 500 MG TAB PO SCH (12:03)
[2020-08-31] MEDS: amLODIPine 5 MG TAB PO SCH (12:03)
--- NOTE | 2020-08-31 12:03 | Event Note ---
Date: 08/31/20 40-year-old female with schizophrenia who presented with suicidal ideation. She was medically cleared by my colleague and seen by the psychiatry/mental health team. Vital signs have remained stable and there were no acute events overnight. She has been accepted for placement at an acute inpatient psychiatric facility and will be transferred today.
== END 2020-08-31 13:30 ==
LOC: ED 11:43 → EEVIPCON 11:43 → ED 08-31 13:30
DX: R45.851 Suicidal ideations (principal); F31.5 Bipolar disorder, current episode depressed, severe, with psychotic features; I10 Essential (primary) hypertension; J45.909 Unspecified asthma, uncomplicated; F17.290 Nicotine dependence, other tobacco product, uncomplicated; Z98.890 Other specified postprocedural states; Z20.822 Contact with and (suspected) exposure to COVID-19
CPT/HCPCS: 36415; 80048; 80164; 80178; 80185; 80307; 81001; 82550; 83735; 84443; 85025; 86850; 86900; 86901; 96372; 99285; J2060; U0003; 80320; 99284; G0480